=== PATIENT | male | born 1955 | race Caucasian/White ===

== ENCOUNTER 2018-06-20 06:17 | Inpatient (IN) ==
--- NOTE | 2018-06-08 16:09 | PAT Medication Instructions ---
Medication Instructions Date of Service June 08, 2018 Home Medications cholecalciferol (vitamin D3) 5,000 unit PO DAILY clonazepam 0.5 mg PO HS clonazepam 1 mg PO QAM ezetimibe 10 mg PO DAILY ferrous sulfate [iron] 325 mg PO DAILY metformin 500 mg PO QDL oxycodone 10 mg PO TID PRN pantoprazole 40 mg PO QAM pindolol 10 mg PO BID ropinirole [Requip XL] 1.5 tab PO HS vitamin B complex 1 cap PO UD PRN vitamin E 400 unit PO DAILY STOP taking 2 weeks before surgery (or as soon as possible if surgery is within 2 weeks) vitamin E 400 unit PO DAILY STOP taking 24 hours before surgery ropinirole [Requip XL] 1.5 tab PO HS DO NOT take the morning of surgery cholecalciferol (vitamin D3) 5,000 unit PO DAILY ferrous sulfate [iron] 325 mg PO DAILY metformin 500 mg PO QDL vitamin B complex 1 cap PO UD PRN Take morning of surgery With a small sip of water, OTHERWISE NOTHING TO EAT OR DRINK AFTER MIDNIGHT: clonazepam 1 mg PO QAM ezetimibe 10 mg PO DAILY oxycodone 10 mg PO TID PRN (okay to take up to 4 hours prior to surgery if needed) pantoprazole 40 mg PO QAM pindolol 10 mg PO BID Take evening before surgery clonazepam 0.5 mg PO HS oxycodone 10 mg PO TID PRN (if needed) pindolol 10 mg PO BID ropinirole [Requip XL] 1.5 tab PO HS vitamin B complex 1 cap PO UD PRN (if needed) Other Notes If you have any questions please call us at [phone] or [phone] or [phone] or [phone]
--- NOTE | 2018-06-11 12:26 | Anesthesiology Consultation ---
Date of Service June 11, 2018 Assessment & Plan (1) Encounter for pre-operative examination: POSSIBLE DIFFICULT INTUBATION BASED ON PHYSICAL EXAM, NO ISSUES NOTED IN RECORD. Chart Review Chart Review: Acceptable Risk for Surgery and Patient seen in Pre Admission Testing Teaching & Discussion Instructed NPO after midnight before surgery, except medications with 15 cc of water. Medication instructions provided according to the PAT guidelines. History Surgery Operation Date: 06/20/18 13:25 Proposed Procedures p C4-C5, C5-C6 Anterior Cervical Discectomy and Fusion - Cachorro Macdonald DO Height/Weight Height: 5 ft 8 in Weight: 107.5 kg Allergies Allergy/AdvReac Type Severity Reaction Status Date / Time Iodinated Contrast- Oral and Allergy Unknown CONTRAST Verified 06/11/18 10:21 IV Dye DYE -SWELLING THROAT, FACE shellfish derived Allergy Unknown SWELLING Verified 06/11/18 10:21 THROAT FACE amoxicillin AdvReac Unknown UPSET Verified 06/11/18 10:21 STOMACH citalopram AdvReac Unknown MADE HIM Verified 06/11/18 10:21 FEEL SPACED OUT clavulanic acid AdvReac Unknown UPSET Verified 06/11/18 10:21 STOMACH fluoxetine AdvReac Unknown MADE HIM Verified 06/11/18 10:21 FEEL SPACED OUT sertraline AdvReac Unknown MADE HIM Verified 06/11/18 10:21 FEEL SPACED OUT Edkwuwl-Tht-Yte Reductase AdvReac Unknown MUSCLE Verified 06/11/18 10:21 Inhibitor CRAMPS venlafaxine AdvReac Unknown MADE HIM Verified 06/11/18 10:21 FEEL SPACED OUT Medications Home Medications Medication Instructions Recorded Confirmed Last Taken cholecalciferol (vitamin D3) 5,000 unit PO DAILY 04/27/18 06/11/18 Unknown [Vitamin D3] clonazepam 0.5 mg PO HS 04/27/18 06/11/18 04/26/18 clonazepam 1 mg PO QAM 04/27/18 06/11/18 05/16/18 ezetimibe 10 mg PO QAM 04/27/18 06/11/18 05/16/18 ferrous sulfate [iron] 325 mg PO QAM 04/27/18 06/11/18 05/16/18 metformin 1,000 mg PO QDL 04/27/18 06/11/18 05/16/18 oxycodone 10 mg PO TID PRN 03/06/11/18 05/16/18 20:00 pantoprazole 40 mg PO QAM 04/27/18 06/11/18 05/17/18 06:00 pindolol 10 mg PO BID 04/27/18 06/11/18 05/17/18 06:00 ropinirole [Requip XL] 1.5 tab PO HS 04/27/18 06/11/18 05/16/18 vitamin B complex 1 cap PO UD PRN 04/27/18 06/11/18 05/16/18 vitamin E 400 unit PO QAM 04/27/18 06/11/18 05/16/18 albuterol sulfate 2 puff INHALATION Q6H PRN 06/11/18 06/11/18 Unknown Past Medical History Medical History Acid reflux Asthma R/T SEASONAL ALLERGIES. HAS NOT USED INHALER IN THE LAST 2 MONTHS Chronic back pain Degenerative disc disease NECK Diabetes TYPE 2 NIDDM Dilatation of thoracic aorta 4.0 cm per 09/2017 imaging High cholesterol Statin intolerant Nonobstructive atherosclerosis of coronary artery By cath 2000 Osteoarthritis Panic attacks Restless leg syndrome Sleep apnea HX CPAP, NON-COMPLIANT, NO LONGER HAS AT HOME. Vasovagal syncope Cardio following Past Family History Family History Mother Family history of diabetes mellitus Brother Family history of diabetes mellitus Sister Family history of diabetes mellitus Father Family history of diabetes mellitus Grandmother Family history of diabetes mellitus Grandfather Family history of diabetes mellitus Past Surgical History Surgical History History of arthroscopy RIGHT KNEE History of cardiac cath 2000 @ [facility], nonobstructive CAD. History of carpal tunnel release BILATERAL History of colonoscopy History of endoscopy History of herniorrhaphy UMBILICAL History of lumbar discectomy X2 History of myringotomy LEFT MYRINGOTOMY WITH TUBE (MAY 2018) History of neck surgery C6-7 "DISC TAKEN OUT" History of tibial fracture "TIB FIB FX" - LEFT "COMPOUND FRACTURE" - X9 TOTAL SURGERIES (1994) History of tonsillectomy S/P arthroscopy of shoulder RIGHT Past Anesthesia History No Family Hx of Anesthesia Complications and Other --Pt reports having high BP on emergence from anesthesia--anesthesia record from 2013 lumbar surgery with GA notes PACU systolic BP highest 171, diastolic in low 100's at highest. Recent BMT procedure with GA at surgery center; BP 157/91. --Pt reports muscle cramps in B/L calves, "Yonis horses," after BMT surgery 06/01. Reports this has never happened with any other surgeries, and he does get Yonis horses on a regular basis. History of PONV No Motion Sickness Screening History of Motion Sickness: No STOP BANG Total 6 Social History Smoking Status: Never smoker Do You Dip or Chew Tobacco: No Hx Alcohol Use: No Hx Substance Use: No substance use type: does not use Exercise / Class Metabolic Activity II 4-5 Yardwork/Stairs/Walk up hill (Denies CP or SOB with 2+ flights of stairs ) Review of Systems Pt denies any recent chest pain, shortness of breath, palpitations, cough, fever or URI. Physical Exam Vital Signs BP: 122/69 P: 72bpm SPO2: 95% RA T: 98.2 F R: 18 Constitutional + obese ENMT Mouth: + chipped teeth (one chipped upper L molar/bicuspid); no dental restorations and no loose teeth Thyromental Distance: > or= 3.5 Finger Breadths (4) Mallampati Class: III Neck + short neck, + thick neck, + limited neck extension (limited by pain) and + facial hair (short abebe, pt okay to shave prior to surgery (advised avoid surgery site)) Respiratory normal respiratory effort Auscultation: lungs clear to auscultation bilaterally Cardiovascular Rate/Rhythm: regular rate and regular rhythm Heart Sounds: no murmur Vessels: no carotid bruit Extremities: no edema Testing Electrocardiogram Date: 04/26/18 Findings: + NSR @ (65) Chest X-Ray Date: 06/11/18 Findings: + NAD Echocardiogram Date: 09/13/17 EF: 55-60% Left ventricular size, wall motion and systolic function are normal. Mild concentric LVH. Grade 1 diastolic dysfunction. Mildly dilated a sending aorta at 4 cm in diameter. No significant change from 04/18/2016 study. Laboratory Results 06/11/18 12:35 06/11/18 12:35 Blood Type O Positive 06/11/18 12:35 Antibody Screen NEGATIVE 06/11/18 12:35 PT 11.0 Seconds (9.0-12.0) 06/11/18 12:35 INR 1.1 (0.9-1.1) 06/11/18 12:35 APTT 28.7 Seconds (21.0-31.0) 06/11/18 12:35 Urine Color Yellow 06/11/18 Unknown Urine Appearance Clear (Clear) 06/11/18 Unknown Urine pH 5.0 (4.5-7.5) 06/11/18 Unknown Ur Specific [place] 1.021 (1.000-1.030) 06/11/18 Unknown Urine Protein Negative (Negative) 06/11/18 Unknown Urine Glucose (UA) Negative (Negative) 06/11/18 Unknown Urine Ketones Negative (Negative) 06/11/18 Unknown Urine Nitrite Negative (Negative) 06/11/18 Unknown Ur Leukocyte Esterase Negative (Negative) 06/11/18 Unknown
--- NOTE | 2018-06-11 13:07 | XRay Report ---
XR chest Pre-admission PA/Lat CLINICAL HISTORY: pat preoperative COMPARISON STUDY: 12/02/2013 FINDINGS: The bones soft tissues and hemidiaphragms are normal. The cardiomediastinal silhouette is n ormal. The lungs are clear. The pulmonary vasculature is normal. IMPRESSION: Negative chest. The above report was generated using voice recognition software. It may contain grammatical, syntax or spelling errors. Electronically signed by: Delio Leslie M.D. 06/11/2018 1:06 PM
[2018-06-11 13:28] LABS: Basophils # (auto) 0.04 K/uL (0-0.2); Basophils % (auto) 0.6 %; Eosinophils # (auto) 0.12 K/uL (0-0.5); Eosinophils % (auto) 1.8 %; Hemoglobin 14.6 g/dL (14.0-18.0); Immature Granulocytes # (auto) 0.02 K/uL (0.00-0.02); Immature Granulocytes % (auto) 0.3 %; Lymphocytes # (auto) 1.56 K/uL (1.2-3.4); Mean Corpuscular Volume 89.8 fL (80-100); Mean Platelet Volume 10.4 fL (7.4-10.4); Monocytes # (auto) 0.66 K/uL (0.11-0.59); Monocytes % (auto) 10.1 %; Neutrophils # (auto) 4.11 K/uL (1.4-6.5); Neutrophils % (auto) 63.2 %; Platelet Count 177 K/uL (130-400); RDW Coefficient of Variation 13.2 % (11.5-14.5); RDW Standard Deviation 43.5 fL (36.4-46.3); Red Blood Count 4.79 M/uL (4.7-6.1); White Blood Count 6.51 K/uL (4.8-10.8)
[2018-06-11 13:43] LABS: INR 1.1 (0.9-1.1); Partial Thromboplastin Ratio 1.1; Partial Thromboplastin Time 28.7 Seconds (21.0-31.0)
[2018-06-11 13:54] LABS: BUN Creatinine Ratio 14.5 (10-20); Calcium 8.9 mg/dl (8.5-10.1); Creatinine Clr Calc Pharmacy 74.4 ml/min; Est GFR (African American) 72.3; Est GFR (Non-African American) 62.4; Potassium 4.1 mmol/L (3.5-5.1)
[2018-06-11 13:55] LABS: Appearance Urine Clear (Clear); Bilirubin Urine Negative (Negative); Blood Urine Negative (Negative); Color Urine Yellow; Glucose Urine UA Negative (Negative); Ketones Urine Negative (Negative); Leukocyte Esterase Urine Negative (Negative); Nitrite Urine Negative (Negative); Protein Urine Negative (Negative); Specific Gravity Urine 1.021 (1.000-1.030); Urobilinogen Urine Negative (Negative)
[~2018-06-20 06:17] MED LIST: ACETAMINOPHEN 500 MG TAB PO SCH; CEFAZOLIN 2000MG 2,000 MG/15 ML SYR IV SCH; CeleBREX 200 MG CAP PO SCH; GABAPENTIN 300 MG x 2 PO SCH; LACTATED RINGER'S 1,000 ML IV SCH
--- OUTSIDE RECORDS SUMMARY | 2018-06-20 06:22 | External Medical Summary | Continuity of Care Document ---
:1955 Author Name Melissa Mera, Provider Address Unavailable Unavailable , Care Team Providers Name Role Phone Leidy Grewal DO Unavailable [email or web address] Mera, Gianni Romano Unavailable [email or web address] Hypercholesterolemia (272.0) (E78.00) Hypertension (401.9) (I10) Vasovagal near syncope (780.2) (R55) CAD (coronary artery disease) (414.00) (I25.10) Dilation of thoracic aorta (447.71) (I77.810) Iron deficiency anemia (280.9) (D50.9) Insomnia (780.52) (G47.00) Pain, joint, shoulder (719.41) (M25.519) Pain, joint, knee (719.46) (M25.569) Prediabetes (790.29) (R73.03) Elevated sed rate (790.1) (R70.0) Abnormal SPEP (790.99) (R77.8) Cervical radiculopathy (723.4) (M54.12) Restless legs syndrome (333.94) (G25.81) Sebaceous cyst (706.2) (L72.3) Umbilical hernia (553.1) (K42.9) Low back pain (724.2) (M54.5) Vitamin D deficiency (268.9) (E55.9) Asthma (493.90) (J45.909) Allergies and Adverse Reactions Atorvastatin Calcium TABS (Adverse Event) Reaction: Myalgia Augmentin TABS (Adverse Event) Reaction: Other CeleXA TABS (Adverse Event) Reaction: Ot her Effexor TABS (Adverse Event) Reaction: O ther Iodinated Contrast Media (Allergy) Iodine SOLN (Allergy) metFORMIN HCl TABS (Adverse Event) React ion: Diarrhea PROzac TABS (Adverse Event) Reaction: Ot her simvastatin (Adverse Event) Reaction: My algia Zoloft TABS (Adverse Event) Reaction: Ot her Intravenous Dye (Allergy) Other (Allergy) Pollen (Allergy) Shellfish (Allergy) Medications Protonix 40 MG Oral Tablet Delayed Release; TAKE 1 TABLET NAHOMY KELLER. Refills: 0 clonazePAM 1 MG Oral Tablet; Take 1 tablet twice daily Refills: 0 rOPINIRole HCl - 2 MG Oral Tablet; TAKE 1 TABLET AT BE DTIME. DO Uri Leidy Refills: 0 Pindolol 10 MG Oral Tablet; Take 1 tablet twice daily Refills: 0 Symbicort 160-4.5 MCG/ACT Inhalation Aer osol; INHALE 2 PUFFS TWICE DAILY. RINSE MOUTH AFTER USE. Refills: 0 Flonase 50 MCG/ACT SUSP; instill 2 sprays into each nostril once daily Refills: 0 Vitamin D 2000 UNIT Oral Tablet; Take 1 tablet daily Start: 01-Sep-2015 Refills: 0 oxyCODONE HCl - 10 MG Oral Tablet; TAKE 1 TABLETS BY MOUTH E VERY 8 HOURS Start: 01-Sep-2015 Refills: 0 metFORMIN HCl - 500 MG Oral Tablet; take 1 tablet by mouth o nce daily Refills: 0 Proventil HFA 108 (90 Base) MCG/ACT Inha lation Aerosol Solution; INHALE 2 PUFFS EVERY 4 HOURS NEEDED Refills: 0 Ezetimibe 10 MG Oral Tablet; TAKE 1 TABLET BY MOUTH Ede Watkins Start: 13-Sep-2017 Quantity: 90 Refills: 5 CeleBREX 200 MG Oral Capsule; TAKE 1 CAPSULE Daily Quantity: 90 Refills: 3 Procedures History of Back Surgery Status: Complete d History of Sinus Surgery Status: Complet ed History of Knee Surgery Status: Complete d History of Neuroplasty Median Nerve At Carpal Status: Completed Tunnel History of Incarcerated Umbilical Hernia Repair Status: Completed 01-Oct-2015 0:00 For Person Over Age 5 Immunizations Immunizations not documented Family History Mother Family history of No known health problems (V49.89) (Z78.9) Status: Active Father Family history of No known health problems (V49.89) (Z78.9) Status: Active Social History - Smoking Status Never smoker Plan of Treatment Planned Encounters Appointment; Gianni Velásquez M.D. Start: 24-Sep-2018 15:45 R equest Planned Observations Planned Goals not documented Results No Known Results Results not documented Encounters Appointment; Gianni Velásquez M.D. 26-Mar-2018 15:30 Encounter Diagnosis: Problem not documented Appointment; Gianni Velásquez M.D. 13-Sep-2017 15:45 Encounter Diagnosis: Problem not documented Appointment; Echo/Stress, Echo/Stress 13-Sep-2017 14:30 Encounter Diagnosis: Problem not documented Appointment; Gianni Velásquez M.D. 29-Mar-2017 14:00 Encounter Diagnosis: Problem not documented Appointment; Gianni Velásquez M.D. 26-Sep-2016 13:15 Encounter Diagnosis: Problem not documented Appointment; Gianni Velásquez M.D. 24-Sep-2018 15:45 Encounter Diagnosis: Problem not documented
[2018-06-20] MEDS ORDERED: LIDOCAINE HCL 2% 2 ML VIAL/AMP(20MG/ML) INFIL ONE (06:48)
[2018-06-20] MEDS ORDERED: NEOSTIGMINE METHYLSULFATE 1 MG/ML 10ML VIAL ONE (06:48)
[2018-06-20] MEDS ORDERED: fentaNYL citrate 100 MCG/2 ML VIAL ONE (06:48)
[2018-06-20] MEDS ORDERED: MIDAZOLAM HCL 1 MG/ML 2ML VIAL ONE (06:48)
[2018-06-20] MEDS ORDERED: PROPOFOL IV EMULSION 10 MG/ML 20 ML VIAL IV ONE ×3 (06:48→09:03)
[2018-06-20] MEDS ORDERED: DEXAMETHASONE SOD INJ 4 MG/ML VIAL ONE (06:48)
[2018-06-20] MEDS ORDERED: GLYCOPYRROLATE 0.2 MG/ML VIAL ONE (06:48)
[2018-06-20] MEDS ORDERED: ROCURONIUM BROMIDE 10 MG/ML 5 ML VIAL ONE (06:48)
[2018-06-20] MEDS ORDERED: BACITRACIN INJ 50,000 UNIT VIAL ONE (06:53)
[2018-06-20] MEDS ORDERED: HYDROmorphone INJ 2 MG/ML SYR/VIAL ONE (07:04)
--- NOTE | 2018-06-20 07:19 | History & Physical Bridge Note ---
Date of Service June 20, 2018 History & Physical Bridge Note I have examined the patient, reviewed the History & Physical and in the interval since the performance of the History & Physical I have noted the following changes of clinical significance: no changes noted
--- NOTE | 2018-06-20 07:20 | History & Physical Report ---
Date of Service June 20, 2018 Assessment & Plan (1) Cervical stenosis of spinal canal: Anterior cervical discectomy and fusion C4-5 and C5-6 Present on Admission?: Yes History of Present Illness Chief Complaint: Neck and arm pain Primary Care Provider: Yuniel Raymond This is a 63-year-old male who presents with chronic persistent neck and arm pain. After failing extensive course of nonoperative care is here for surgical intervention. Allergies Allergy/AdvReac Type Severity Reaction Status Date / Time Iodinated Contrast- Oral and Allergy Unknown CONTRAST Verified 06/20/18 06:28 IV Dye DYE -SWELLING THROAT, FACE shellfish derived Allergy Unknown SWELLING Verified 06/20/18 06:28 THROAT FACE amoxicillin AdvReac Unknown UPSET Verified 06/20/18 06:28 STOMACH citalopram AdvReac Unknown MADE HIM Verified 06/20/18 06:28 FEEL SPACED OUT clavulanic acid AdvReac Unknown UPSET Verified 06/20/18 06:28 STOMACH fluoxetine AdvReac Unknown MADE HIM Verified 06/20/18 06:28 FEEL SPACED OUT sertraline AdvReac Unknown MADE HIM Verified 06/20/18 06:28 FEEL SPACED OUT Ihxxiwp-Fgr-Nus Reductase AdvReac Unknown MUSCLE Verified 06/20/18 06:28 Inhibitor CRAMPS venlafaxine AdvReac Unknown MADE HIM Verified 06/20/18 06:28 FEEL SPACED OUT Home Medications Home Medications Medication Instructions Recorded Confirmed Type cholecalciferol (vitamin D3) 5,000 unit PO DAILY 04/27/18 06/20/18 History [Vitamin D3] clonazepam 0.5 mg PO HS 04/27/18 06/20/18 History clonazepam 1 mg PO QAM 04/27/18 06/20/18 History ezetimibe 10 mg PO QAM 04/27/18 06/20/18 History ferrous sulfate [iron] 325 mg PO QAM 04/27/18 06/20/18 History metformin 1,000 mg PO QDL 04/27/18 06/20/18 History oxycodone 10 mg PO TID PRN 04/27/18 06/20/18 History pantoprazole 40 mg PO QAM 04/27/18 06/20/18 History pindolol 10 mg PO BID 04/27/18 06/20/18 History ropinirole [Requip XL] 1.5 tab PO HS 04/27/18 06/20/18 History vitamin B complex 1 cap PO UD PRN 04/27/18 06/20/18 History vitamin E 400 unit PO QAM 04/27/18 06/20/18 History albuterol sulfate 2 puff INHALATION Q6H PRN 06/11/18 06/20/18 History Past Med/Surg History Medical History Acid reflux Asthma R/T SEASONAL ALLERGIES. HAS NOT USED INHALER IN THE LAST 2 MONTHS Chronic back pain Degenerative disc disease NECK Diabetes TYPE 2 NIDDM Dilatation of thoracic aorta 4.0 cm per 09/2017 imaging High cholesterol Statin intolerant Nonobstructive atherosclerosis of coronary artery By cath 2000 Osteoarthritis Panic attacks Restless leg syndrome Sleep apnea HX CPAP, NON-COMPLIANT, NO LONGER HAS AT HOME. Vasovagal syncope Cardio following Surgical History History of arthroscopy RIGHT KNEE History of cardiac cath 2000 @ [facility], nonobstructive CAD. History of carpal tunnel release BILATERAL History of colonoscopy History of endoscopy History of herniorrhaphy UMBILICAL History of lumbar discectomy X2 History of myringotomy LEFT MYRINGOTOMY WITH TUBE (MAY 2018) History of neck surgery C6-7 "DISC TAKEN OUT" History of tibial fracture "TIB FIB FX" - LEFT "COMPOUND FRACTURE" - X9 TOTAL SURGERIES (1994) History of tonsillectomy S/P arthroscopy of shoulder RIGHT Family History Mother Family history of diabetes mellitus Brother Family history of diabetes mellitus Sister Family history of diabetes mellitus Father Family history of diabetes mellitus Grandmother Family history of diabetes mellitus Grandfather Family history of diabetes mellitus Social History Preferred Language: Marshallese Communication Ability: Effective Head Turbine Operator Required: No Beliefs That Will Affect Care: None Current Living Situation: Spouse and Other Current Living Situation Comment: SON Other Information That Helps Us Care for You: No Feels Safe at Home: Yes Safety Concerns: Feels Safe At This Time Smoking Status: Never smoker Do You Dip or Chew Tobacco: No Second Hand Exposure: No Tobacco Cessation Education Requested by Patient: No Hx Alcohol Use: No Hx Substance Use: No Physical Exam Vital Signs (Past 24 Hours): Last Vital Signs Temp 36.7 C 06/20/18 06:38 Pulse 70 06/20/18 06:38 Resp 20 06/20/18 06:38 BP 153/88 H 06/20/18 06:38 Pulse Ox 95 06/20/18 06:38 Physical Exam: Patient is reasonable strength testing a positive Spurling's to the right.
[2018-06-20] MEDS ORDERED: ATROPINE SULFATE 0.1 MG/ML 10ML SYR IV PRN (07:29)
[2018-06-20] MEDS ORDERED: ePHEDrine sulfate 50 MG/ML AMP IV PRN (07:29)
[2018-06-20] MEDS ORDERED: FLOSEAL HEMOSTATIC MATRIX 10ML TOP ONE (08:20)
--- NOTE | 2018-06-20 09:30 | Operative Report ---
Post Operative Report Pre & Post Diagnosis Operation Date: 06/20/18 07:45 Pre-Op Diagnosis: Cervical spinal stenosis with radiculopathy Post-Op Diagnosis: Same Procedure Operation Date: 06/20/18 07:45 Actual Procedures #1 anterior cervical discectomy bilateral foraminotomies C4-5 C5-6. #2 anterior cervical arthrodesis C4-5 C5-6. #3 basement cortical allograft filled with DBM 9 mm in height at C4-5 and 7 mm in height at C5-6. #4 application mondragon plate and screws at C4-5 C5-6. Surgeon Cachorro Macdonald, Purchasing Buyer Melodie Rivera Estimated Blood Loss 5 Findings See Below This patient is 5 foot 8 and 105 kg. He is a BMI of 35. Patient's body mass created increased technical difficulty with exposure and performing the entire procedure adding a minimum of of 25% increase in surgical time. Specimens None Indications This is a 63-year-old male presents with worsening of neck and arm symptoms. After failing extensive course of nonoperative care elected to undergo the above-mentioned procedure. Description of Procedure Patient was met with identified and informed consent obtained. He was then taken to the operative suite underwent intubation placed in a supine position injected with a Horn hogshead opener. All bony prominences well-padded eyes inspected to ensure no external pressure placed upon the peer at this point the anterior cervical spine was prepped and draped in a sterile fashion. With the assistance of fluoroscopy identified the C5 vertebral body and a transverse incision was placed along the right anterior aspect of the cervical spine overlying this region. Sharp dissection with the assistance of bipolar cautery was performed down to and exposing the anterior cervical spine from C4-C6. A self retainer retractors placed. I began with the C4-5 disc space perform a complete discectomy out to the uncovertebral joint bilaterally. Atlantic dis tracting pins utilized to assist in visualization. I removed all posterior annular fibers longitudinal ligament perform bilateral foraminotomies. Endplates were then burred to subcortical bleeding bone and a 9 mm cortical allograft filled with DBM tapped in position. Then proceeded to see 5 6. Again complete discectomy performed out to the uncovertebral joints bilaterally. Atlantic distracting pins again utilized. Removed all posterior annular fibers longitudinal ligament and perform bilateral foraminotomies. A 7 mm cortical allograft filled with DBM tapped in position. Distraction apparatus removed all anterior ossified's burred to a smooth cortical surface and a globus plate and screws applied with the assistance of fluoroscopy. Incision was then copiously irrigated explored there to ensure no damage to surrounding structures remaining bleeding. 10 round SAROJ drain inserted. Incision was then closed with 2 Vicryl in the fascia and 4 Monocryl for final closure Steri-Strip sterile dressing placed. Patient will continue PACU stable disc. Please note Melodie Rivera present at the entire procedure involved in patient positioning complex portions of the surgery and final skin closure. Lastly spinal cord monitoring was utilized throughout the procedure and no changes noted. I attest to the content of the Intraoperative Record and any orders documented therein. Any exceptions are noted below.
[2018-06-20] MEDS: HYDROmorphone INJ 1 MG/ML SYRINGE IV PRN ×8 (09:50→10:25)
--- NOTE | 2018-06-20 10:02 | Fluoroscopy Report ---
FL cervical 2-3V CLINICAL HISTORY: C4-C5, C5-C6 ANTERIOR DISCECTOMY/FUSION COMPARISON STUDY: None FLUOROSCOPY TIME: 15 seconds NUMBER OF FLUOROSCOPIC IMAGES: 3 FINDINGS: Image intensifier utilized for an anterior low cervical fusion from C4 through C6. IMPRESSION: Image intensifier utilized for an anterior low cervical fusion from C4 through C6. The above report was generated using voice recognition software. It may contain grammatical, syntax or spelling errors. Electronically signed by: Delio Leslie M.D. 06/20/2018 10:01 AM
--- NOTE | 2018-06-20 10:38 | Anesthesiology Progress Note ---
Date of Service June 20, 2018 Anesthesia Post Procedure Vital Signs Vital Signs: Temp Pulse Pulse Resp BP Pulse Ox 06/20/18 10:30 63 16 160/78 H 99 06/20/18 10:20 65 15 164/81 H 94 06/20/18 10:10 61 16 155/94 H 98 06/20/18 10:00 64 16 170/105 H 97 06/20/18 09:50 64 16 151/81 H 98 06/20/18 09:42 36.2 C L 64 16 167/98 H 97 06/20/18 06:38 36.7 C 70 20 153/88 H 95 Pain Intensity Neck: Pain Intensity: 6 Notes Mental Status: alert / awake / arousable and participated in evaluation Nausea / Vomiting: adequately controlled Pain: adequately controlled Airway Patency, RR, SpO2: stable & adequate BP & HR: stable & adequate Hydration State: stable & adequate
[2018-06-20] MEDS ORDERED: MAGNESIUM HYDROXIDE SUSP 30 ML UDC PO PRN (11:15)
[2018-06-20] MEDS ORDERED: LORazepam 0.5 MG/1 ML VIAL IV PRN (11:15)
[2018-06-20] MEDS ORDERED: ACETAMINOPHEN 1,000 MG/100 ML VIAL IV PRN (11:15)
[2018-06-20] MEDS ORDERED: OXYCODONE HCL IR 5 MG TAB (IMMEDIATE RELEASE) PO PRN (11:15)
[2018-06-20] MEDS ORDERED: ONDANSETRON INJ 2 MG/ML 2 ML VIAL IV PRN (11:15)
[2018-06-20] MEDS ORDERED: RACEPINEPHRINE 2.25% NEBU SOLN 0.5 ML VIAL INH PRN (11:15)
[2018-06-20] MEDS ORDERED: DiphenhydrAMINE HCL 50 MG/ML VIAL IV PRN (11:15)
[2018-06-20] MEDS ORDERED: DO NOT ADMINISTER FLU VACCINE PRN (11:15)
[2018-06-20] MEDS ORDERED: LORazepam 0.5 MG TAB PO PRN (11:15)
[2018-06-20] MEDS ORDERED: NALOXONE HCL 0.4 MG/1 ML VIAL/CARP IV PRN (11:15)
[2018-06-20] MEDS ORDERED: DO NOT ADMINISTER PNEUMOCOCCAL VACCINE PRN (11:15)
[2018-06-20] MEDS ORDERED: DEXAMETHASONE SOD PHOSPHATE 8 MG in SYRINGE 0 ML IV PRN (11:15)
[2018-06-20] MEDS ORDERED: SCOPOLAMINE 1.5 MG TDSY TD SCH (11:30)
[2018-06-20] MEDS: HYDROmorphone INJ 0.5 MG/0.5 ML SYR IV PRN ×2 (12:44→20:06)
[2018-06-20] MEDS: CLINDAMYCIN 600 MG in DEXTROSE 5% 50 ML IV SCH ×2 (14:24→22:16)
[2018-06-20] MEDS: SODIUM CHLORIDE 0.9% 1000ML 1,000 ML IV SCH ×2 (14:28→23:37)
--- NOTE | 2018-06-20 15:23 | Hospitalist Consultation ---
Date of Consultation June 20, 2018 Assessment & Plan (1) Cervical stenosis of spinal canal: POD #[address] Macdonald Follow standard protocol for ACDF postoperative management Further management per Dr. Mcadonald (2) Hypertension: No history of hypertension as an outpatient Patient is on pindolol for vasovagal syndrome * This is nonformulary. His will bring medication in and have verified by pharmacy and then take per home At this point the patient's systolic blood pressure is manageable at 134. Will watch expectantly No additional orders for PRN medication at this time Nursing to call hospitalist team in the event that patient experience hypertension over the nighttime hours. (3) Diabetes mellitus type 2 in obese: Recently diagnosed Metformin use at home - Continue during inpatient stay Hemoglobin A1c as 7.5 BSG ACHS NovoLog sliding scale coverage (4) GERD (gastroesophageal reflux disease): Currently asymptomatic Keep head of bed elevated above 30 degrees Continue pantoprazole (5) DVT prophylaxis: No chemical prophylaxis secondary to surgery Continue JOHN hose Continue SCDs Ambulate as tolerated Thank you very much for including us in the care of this patient. Please refer to Dr. Burkett's addendum for further recommendations. Supervising Physician Co-Signing Physician Notes During my face to face encounter, I performed a history and physical examination on the patient. I reviewed above note and agree with it. I answered all of the patients questions and concerns. In regards to his diabetes, will hold metformin and continue the sliding scale as described above. History of Present Illness Reason for Consultation: Medical management status post ACDF Requesting Physician: Dr. Macdonald Attending Physician: Cachorro Macdonald, History of Present Illness Attending: Dr. Burkett Is a pleasant 63-year-old male that presented today for elective ACDF with Dr. Macdonald. The patient has a past medical history which includes GERD, vasovagal disease on pindolol, iron deficiency, recently diagnosed diabetes mellitus type 2 on metformin, restless leg syndrome, hyperlipidemia, chronic otitis media of left ear secondary to eustachian tube dysfunction, and anxiety. The patient has no recent illness, fever, chills, sweats, rigors. He denies any nausea or vomiting. He has no recent diarrhea. He has no recent travel. He has no other acute issues. The patient does report that on previous history of surgery he required IV antihypertensives for transient hypertension and typically has calf cramping postsurgically. He denies history of thromboembolic disease. He is not on any anticoagulants or routine antiplatelet medications. Allergies Allergy/AdvReac Type Severity Reaction Status Date / Time Iodinated Contrast- Oral and Allergy Unknown CONTRAST Verified 06/20/18 06:28 IV Dye DYE -SWELLING THROAT, FACE shellfish derived Allergy Unknown SWELLING Verified 06/20/18 06:28 THROAT FACE amoxicillin AdvReac Unknown UPSET Verified 06/20/18 06:28 STOMACH citalopram AdvReac Unknown MADE HIM Verified 06/20/18 06:28 FEEL SPACED OUT clavulanic acid AdvReac Unknown UPSET Verified 06/20/18 06:28 STOMACH fluoxetine AdvReac Unknown MADE HIM Verified 06/20/18 06:28 FEEL SPACED OUT sertraline AdvReac Unknown MADE HIM Verified 06/20/18 06:28 FEEL SPACED OUT [id number] Reductase AdvReac Unknown MUSCLE Verified 06/20/18 06:28 Inhibitor CRAMPS venlafaxine AdvReac Unknown MADE HIM Verified 06/20/18 06:28 FEEL SPACED OUT Home Medications Home Medications Medication Instructions Recorded Confirmed Type cholecalciferol (vitamin D3) 5,000 unit PO DAILY 04/27/18 06/20/18 History [Vitamin D3] clonazepam 0.5 mg PO HS 04/27/18 06/20/18 History clonazepam 1 mg PO QAM 04/27/18 06/20/18 History ezetimibe 10 mg PO QAM 04/27/18 06/20/18 History ferrous sulfate [iron] 325 mg PO QAM 04/27/18 06/20/18 History metformin 1,000 mg PO QDL 04/27/18 06/20/18 History oxycodone 10 mg PO TID PRN 04/27/18 06/20/18 History pantoprazole 40 mg PO QAM 04/27/18 06/20/18 History pindolol 10 mg PO BID 04/27/18 06/20/18 History ropinirole [Requip XL] 1.5 tab PO HS 04/27/18 06/20/18 History vitamin B complex 1 cap PO UD PRN 04/27/18 06/20/18 History vitamin E 400 unit PO QAM 04/27/18 06/20/18 History albuterol sulfate 2 puff INHALATION Q6H PRN 06/11/18 06/20/18 History oxycodone 5 mg PO Q4H PRN #30 tab 06/20/18 Rx Patient History Medical History Asthma R/T SEASONAL ALLERGIES. HAS NOT USED INHALER IN THE LAST 2 MONTHS Chronic back pain Osteoarthritis Acid reflux Degenerative disc disease NECK Diabetes TYPE 2 NIDDM Dilatation of thoracic aorta 4.0 cm per 09/2017 imaging High cholesterol Statin intolerant Nonobstructive atherosclerosis of coronary artery By cath 2000 Panic attacks Restless leg syndrome Sleep apnea HX CPAP, NON-COMPLIANT, NO LONGER HAS AT HOME. Vasovagal syncope Cardio following Surgical History History of arthroscopy RIGHT KNEE History of carpal tunnel release BILATERAL History of herniorrhaphy UMBILICAL History of myringotomy LEFT MYRINGOTOMY WITH TUBE (MAY 2018) History of tonsillectomy S/P arthroscopy of shoulder RIGHT History of cardiac cath 2000 @ [facility], nonobstructive CAD. History of colonoscopy History of endoscopy History of lumbar discectomy X2 History of neck surgery C6-7 "DISC TAKEN OUT" History of tibial fracture "TIB FIB FX" - LEFT "COMPOUND FRACTURE" - X9 TOTAL SURGERIES (1994) Family History Mother Family history of diabetes mellitus Brother Family history of diabetes mellitus Sister Family history of diabetes mellitus Father Family history of diabetes mellitus Grandmother Family history of diabetes mellitus Grandfather Family history of diabetes mellitus Social History Preferred Language: Dominican Communication Ability: Effective Cargo Trimmer Required: No Beliefs That Will Affect Care: None marital status: Current Living Situation: Spouse and Other Current Living Situation Comment: SON Other Information That Helps Us Care for You: No Feels Safe at Home: Yes Safety Concerns: Feels Safe At This Time Smoking Status: Never smoker Do You Dip or Chew Tobacco: No Second Hand Exposure: No Tobacco Cessation Education Requested by Patient: No Hx Alcohol Use: No Hx Substance Use: No Review of Systems Review of Systems: All systems reviewed & are unremarkable except as noted in HPI & below Physical Exam Physical Exam: GENERAL : No acute distress EYES: No icterus, gaze conjugate NOSE: No evidence of epistaxis MOUTH: No lesions or candidiasis NECK: Supple. Dressing is intact with minimal evidence of bleeding. SAROJ drain is draining well. No evidence of hematoma. Trachea is midline. There is no evidence of stridor. No apparent issues with swallowing. LUNGS: CTA B/L, no wheezes, rales or rhonchi HEART: Regular, rate controlled ABDOMEN: Soft, NT, ND, BS Present EXTREMITIES: No LE edema, pedal pulses intact. JOHN hose and SCDs intact NEURO: A&OX3 Results & Data Vital Signs (Past 12 Hours) Vital Signs Temp Pulse Pulse Pulse Resp BP BP 06/20/18 14:41 36.8 C 76 18 134/84 06/20/18 13:00 36.4 C L 59 L 17 167/90 H 06/20/18 12:45 36.5 C 61 18 170/103 H 06/20/18 12:40 69 175/97 H 06/20/18 12:30 36.3 C L 66 16 189/110 H 06/20/18 11:45 52 L 16 133/77 06/20/18 11:31 60 16 06/20/18 11:30 36.4 C L 56 L 16 165/105 H 06/20/18 11:16 58 L 164/101 H 06/20/18 11:10 55 L 167/105 H 06/20/18 11:00 36.6 C 60 17 168/111 H 06/20/18 10:50 36.4 C L 57 L 16 136/72 06/20/18 10:40 36.4 C L 57 L 16 153/92 H 06/20/18 10:30 63 16 160/78 H 06/20/18 10:20 65 15 164/81 H 06/20/18 10:10 61 16 155/94 H 06/20/18 10:00 64 16 170/105 H 06/20/18 09:50 64 16 151/81 H 06/20/18 09:42 36.2 C L 64 16 167/98 H 06/20/18 06:38 36.7 C 70 20 153/88 H Pulse Ox 06/20/18 14:41 96 06/20/18 13:00 97 06/20/18 12:45 96 06/20/18 12:40 97 06/20/18 12:30 98 06/20/18 11:45 98 06/20/18 11:31 99 06/20/18 11:30 97 06/20/18 11:16 06/20/18 11:10 06/20/18 11:00 96 06/20/18 10:50 96 06/20/18 10:40 96 06/20/18 10:30 99 06/20/18 10:20 94 06/20/18 10:10 98 06/20/18 10:00 97 06/20/18 09:50 98 06/20/18 09:42 97 06/20/18 06:38 95 Laboratory Results 06/11/18 12:35 06/11/18 12:35 Diagnostic Findings FL cervical 2-3V CLINICAL HISTORY: C4-C5, C5-C6 ANTERIOR DISCECTOMY/FUSION COMPARISON STUDY: None FLUOROSCOPY TIME: 15 seconds NUMBER OF FLUOROSCOPIC IMAGES: 3 FINDINGS: Image intensifier utilized for an anterior low cervical fusion from C4 through C6. IMPRESSION: Image intensifier utilized for an anterior low cervical fusion from C4 through C6.
[2018-06-20] MEDS: OXYCODONE HCL IR 5 MG TAB (IMMEDIATE RELEASE) PO PRN ×2 (15:26→23:36)
[2018-06-20] MEDS: CHECK SCOPOLAMINE PATCH PLACEMENT SCH ×2 (16:09→23:38)
[2018-06-20] MEDS ORDERED: GLUCAGON FOR INJ 1 MG VIAL IM PRN (16:30)
[2018-06-20] MEDS ORDERED: CARBOHYDRATES FOR HYPOGLYCEMIA PO PRN (16:30)
[2018-06-20] MEDS ORDERED: DEXTROSE 50% 50 ML SYRINGE IV PRN (16:30)
[2018-06-20] MEDS ORDERED: GLUCOSE 10 TABS/TUBE PO PRN (16:30)
[2018-06-20] MEDS ORDERED: GLUCOSE 40% GEL 15 GM TUBE PO PRN (16:30)
[2018-06-20] MEDS: INSULIN ASPART 100 UNITS/ML 3 ML PEN SC SCH ×2 (18:46→22:07)
[2018-06-20] MEDS: DOCUSATE SODIUM 100 MG CAP PO SCH (20:15)
[2018-06-20] MEDS: [UNRECOGNIZED DRUG - REMARK] PO SCH (20:15)
[2018-06-20] MEDS ORDERED: HydrALAZINE HCL 20 MG/ML VIAL IV ONE (20:33)
[2018-06-20] MEDS ORDERED: PINDOLOL 10 MG PO SCH (21:00)
[2018-06-20] MEDS ORDERED: clonazePAM 0.5 MG TAB PO SCH (21:00)
[2018-06-21] MEDS: OXYCODONE HCL IR 5 MG TAB (IMMEDIATE RELEASE) PO PRN ×3 (03:45→11:53)
[2018-06-21] MEDS: CLINDAMYCIN 600 MG in DEXTROSE 5% 50 ML IV SCH (06:07)
--- NOTE | 2018-06-21 08:00 | Anesthesiology Progress Note ---
Date of Service June 21, 2018 Anesthesia Post Procedure Vital Signs Vital Signs: Temp Pulse Pulse Resp BP BP Pulse Ox 06/21/18 07:36 36.9 C 76 18 174/94 H 93 06/21/18 07:04 82 16 92 06/21/18 06:17 36.8 C 74 16 161/93 H 93 06/21/18 04:00 36.6 C 78 16 151/89 H 93 06/21/18 03:37 86 16 92 06/21/18 02:00 36.8 C 77 16 151/82 H 92 06/21/18 00:00 36.6 C 89 16 164/90 H 93 06/20/18 23:21 36.6 C 74 18 150/84 H 93 06/20/18 23:12 80 18 92 06/20/18 22:20 36.9 C 90 16 161/90 H 93 06/20/18 21:27 156/88 H 06/20/18 20:17 36.6 C 93 H 18 211/127 H 180/101 H 95 06/20/18 20:00 99 H 16 94 06/20/18 18:22 37 C 82 18 168/91 H 191/111 H 95 06/20/18 16:12 36.8 C 74 16 159/95 H 95 06/20/18 15:54 36.5 C 62 17 160/89 H 95 06/20/18 15:31 66 14 97 06/20/18 14:41 36.8 C 76 18 134/84 96 06/20/18 13:00 36.4 C L 59 L 17 167/90 H 97 06/20/18 12:45 36.5 C 61 18 170/103 H 96 06/20/18 12:40 69 175/97 H 97 06/20/18 12:30 36.3 C L 66 16 189/110 H 98 06/20/18 11:45 52 L 16 133/77 98 06/20/18 11:31 60 16 99 06/20/18 11:30 36.4 C L 56 L 16 165/105 H 97 06/20/18 11:16 58 L 164/101 H 06/20/18 11:10 55 L 167/105 H 06/20/18 11:00 36.6 C 60 17 168/111 H 96 06/20/18 10:50 36.4 C L 57 L 16 136/72 96 06/20/18 10:40 36.4 C L 57 L 16 153/92 H 96 06/20/18 10:30 63 16 160/78 H 99 06/20/18 10:20 65 15 164/81 H 94 06/20/18 10:10 61 16 155/94 H 98 06/20/18 10:00 64 16 170/105 H 97 06/20/18 09:50 64 16 151/81 H 98 06/20/18 09:42 36.2 C L 64 16 167/98 H 97 Pain Intensity Neck: Pain Intensity: 6 Notes Mental Status: alert / awake / arousable and participated in evaluation Patient Amnestic to Procedure: Yes Nausea / Vomiting: adequately controlled Pain: adequately controlled Airway Patency, RR, SpO2: stable & adequate BP & HR: stable & adequate Hydration State: stable & adequate Anesthetic Complications: no major complications apparent and Pt Satisfied with anesthetic care
[2018-06-21] MEDS: [UNRECOGNIZED DRUG - REMARK] PO SCH (08:08)
[2018-06-21] MEDS: DOCUSATE SODIUM 100 MG CAP PO SCH (08:09)
[2018-06-21] MEDS: CHECK SCOPOLAMINE PATCH PLACEMENT SCH (08:09)
--- NOTE | 2018-06-21 08:26 | Discharge Summary ---
Date of Service June 21, 2018 Admission HPI Per Admitting Provider This is a 63-year-old male who presents with chronic persistent neck and arm pain. After failing extensive course of nonoperative care is here for surgical intervention. Principal Diagnosis Cervical spinal stenosis with radiculopathy Discharge Data Allergies Allergy/AdvReac Type Severity Reaction Status Date / Time Iodinated Contrast- Oral and Allergy Unknown CONTRAST Verified 06/20/18 06:28 IV Dye DYE -SWELLING THROAT, FACE shellfish derived Allergy Unknown SWELLING Verified 06/20/18 06:28 THROAT FACE amoxicillin AdvReac Unknown UPSET Verified 06/20/18 06:28 STOMACH citalopram AdvReac Unknown MADE HIM Verified 06/20/18 06:28 FEEL SPACED OUT clavulanic acid AdvReac Unknown UPSET Verified 06/20/18 06:28 STOMACH fluoxetine AdvReac Unknown MADE HIM Verified 06/20/18 06:28 FEEL SPACED OUT sertraline AdvReac Unknown MADE HIM Verified 06/20/18 06:28 FEEL SPACED OUT [id number] Reductase AdvReac Unknown MUSCLE Verified 06/20/18 06:28 Inhibitor CRAMPS venlafaxine AdvReac Unknown MADE HIM Verified 06/20/18 06:28 FEEL SPACED OUT Consultations 06/20/18 12:56 Consult Hospitalist Routine Procedures Performed Operation Date: 06/20/18 07:45 Actual Procedures p C4-C5, C5-C6 Anterior Cervical Discectomy and Fusion, Spinal Cord Monitoring(Not Applicable) - Cachorro Macdonald, Ordered Studies 06/20/18 07:45 FL cervical 2-3V Routine FL fluoroscopy <1hr Routine Hospital Course (1) Cervical stenosis of spinal canal: Patient underwent anterior cervical discectomy and fusion tolerated as well as taken to orthopedic for postoperative. Postop day #1 his arm symptoms are improved no swallowing issues no hoarseness. Subsequent Total Time Total Time Spent Total Time Spent (In Minutes): Cervical spinal stenosis with radiculopathy Discharge Plan Discharge Items Patient Disposition: Home - Self-Care Reason For Visit: Spinal Stenosis, Cervical Region Discharge Diagnosis: Cervical spinal stenosis with radiculopathy Discharge Goals: Decrease discomfort Activity: Per 'Additional Instructions' section Non-emergency contact: Primary Care Provider Call non-emergency contact if: you have any medication questions Follow-up/Referrals: Yuniel Raymond [Primary Care Provider] - Diet: Regular Addtl Provider Instructions: ACTIVITY RECOMMENDATIONS: SELF CARE INSTRUCTIONS AFTER CERVICAL FUSIONS 1. No smoking. Smoking drastically decreases the chance of a solid fusion. 2. No bending, lifting more than 5 pounds, or twisting (roll like a log when turning in bed). 3. You may shower 3 days after surgery. Thoroughly dry wound. Do not soak in the tub. 4. Cervical collar: Must be worn at all times including sleeping. You may remove the brace only to bath, eat and if you are sitting in a recliner. 5. Please walk as much as you can for exercise. Gradually increase the distance that you walk as your endurance increases. SPECIAL CARE INSTRUCTIONS: VERY IMPORTANT TO READ AND REVIEW A. Do not take any anti-inflammatory medications (i.e. Indocin, Advil, Aspirin, Naprosyn, Aleve, Motrin, etc.) as these may inhibit the chance of a solid fusion. Tylenol is okay to take. B. Your surgical incision has been closed with a cosmetic suture under the skin that will dissolve in about 6 weeks. In 14 days, you can use a pair of clean scissors and cut the suture that is left outside of the skin at the ends of your incision. C. Complications are uncommon, but please contact us if you have any signs or symptoms of: 1. wound infection (fever higher than 102.5 degrees F, redness, separation of wound, drainage, or increasing pain from the incision) 2. blood clots in legs (pain, swelling, redness and warmth in legs) 3. urinary tract infection (fever higher than 102.5 degrees, burning upon urination or increased frequency of urination) 4. nerve problems (inability to walk on your toes or heels, numbness, loss of bowel or bladder control) 5. any other symptoms that concern you. D. Please call the office at if you have any concerns or questions about your operation or recovery. MANAGING PAIN AFTER SPINAL SURGERY 1. Narcotic medication is intended for short-term use and will be provided for surgical pain. Surgical pain usually lasts for a period of 4-6 weeks. Narcotic medication includes Percocet, Vicodin, Darvocet, Tylenol #3 or Lortab. 2. Longer-term pain is more appropriately treated with non-narcotic medication such as Tylenol ES. 3. Muscle spasm is not appropriately treated with narcotics. Muscle relaxers such as Soma, Flexeril or Skelaxin can be used along with Tylenol ES. 4. Remember that we all live with some "aches and pains". This is not unusual or uncommon after an injury or as we get older. 5. We will provide appropriate medication within the normal guidelines of their prescribed use. We will also be very cautious and aware of potential abuse and extended duration of patients' medication needs. 6. Please allow 2-3 days to process refills. Prescriptions will not be mailed but must be picked up at the office. FOLLOW UP VISIT: Keep your scheduled follow-up appointment. Any questions, please call the office at . Prescriptions: New oxycodone 5 mg Tablet 5 mg PO Q4H PRN (Reason: Pain) Qty: 30 RF: 0 Continued pindolol 10 mg Tablet 10 mg PO BID RF: 0 metformin 500 mg Tablet 1,000 mg PO QDL RF: 0 clonazepam 0.5 mg Tablet 0.5 mg PO HS RF: 0 clonazepam 1 mg Tablet 1 mg PO QAM RF: 0 pantoprazole 40 mg Tablet,Delayed Release (Dr/Ec) 40 mg PO QAM RF: 0 ezetimibe 10 mg Tablet 10 mg PO QAM RF: 0 oxycodone 10 mg Tablet 10 mg PO TID PRN (Reason: Pain) RF: 0 ropinirole [Requip XL] 2 mg Tablet Extended Release 24 Hr 1.5 tab PO HS RF: 0 ferrous sulfate [iron] 325 mg (65 mg iron) Tablet 325 mg PO QAM RF: 0 vitamin E 400 unit Capsule 400 unit PO QAM RF: 0 vitamin B complex Capsule 1 cap PO UD PRN (Reason: ULCERS IN MOUTH) RF: 0 cholecalciferol (vitamin D3) [Vitamin D3] 5,000 unit Tablet 5,000 unit PO DAILY RF: 0 albuterol sulfate 90 mcg/actuation Hfa Aerosol Inhaler 2 puff INHALATION Q6H PRN (Reason: SOB) RF: 0 Stand-Alone Forms: [facility] Discharge Orders: Discharge Order (Routine); Ordered 06/21/18 Ordered By: Cachorro Macdonald Admission Data Admit Date/Time: 06/20/18 09:34 Attending Provider: Cachorro Macdonald Admit Provider: Cachorro Macdonald Primary Care Provider: Yuniel Raymond Other Providers: Moreno Manzano Service: Surgical Services
[2018-06-21] MEDS ORDERED: clonazePAM 1 MG TAB PO SCH (09:00)
[2018-06-21] MEDS ORDERED: FERROUS SULFATE 325 MG TAB PO SCH (09:00)
[2018-06-21] MEDS ORDERED: EZETIMIBE 10 MG TABLET PO SCH (09:00)
[2018-06-21] MEDS ORDERED: PANTOprazole 40 MG TAB PO SCH (09:00)
[2018-06-21] MEDS: INSULIN ASPART 100 UNITS/ML 3 ML PEN SC SCH ×2 (09:29→12:03)
== END 2018-06-21 13:30 | disposition home or self-care (01) | DRG 473 ==
LOC: ASU 06:17 → 3E 09:34
DX: I10 Essential (primary) hypertension; E11.9 Type 2 diabetes mellitus without complications; Z88.0 Allergy status to penicillin; Z88.8 Allergy status to other drugs, medicaments and biological substances; Z91.041 Radiographic dye allergy status; M54.12 Radiculopathy, cervical region; F41.0 Panic disorder [episodic paroxysmal anxiety]; M48.02 Spinal stenosis, cervical region; I25.10 Atherosclerotic heart disease of native coronary artery without angina pectoris; E78.5 Hyperlipidemia, unspecified; Z91.013 Allergy to seafood; Z83.3 Family history of diabetes mellitus; K21.9 Gastro-esophageal reflux disease without esophagitis; Z79.84 Long term (current) use of oral hypoglycemic drugs; E61.1 Iron deficiency; R55 Syncope and collapse; G25.81 Restless legs syndrome; Z79.899 Other long term (current) drug therapy

== ENCOUNTER 2020-12-31 11:49 | Observation (INO) ==
[2020-12-31 12:30] LABS: Basophils # (auto) 0.02 K/uL (0-0.2); Basophils % (auto) 0.3 %; Eosinophils # (auto) 0.09 K/uL (0-0.5); Eosinophils % (auto) 1.3 %; Hematocrit (blood only) 43.7 % (42-52); Hemoglobin 14.9 g/dL (14.0-18.0); Immature Granulocytes # (auto) 0.01 K/uL (0.00-0.02); Immature Granulocytes % (auto) 0.1 %; Lymphocytes # (auto) 1.07 K/uL (1.2-3.4); Lymphocytes % (auto) 15.6 %; Mean Corpuscular Hemoglobin 30.8 pg (25-34); Mean Corpuscular Hgb Conc 34.1 g/dL (32-36); Mean Corpuscular Volume 90.5 fL (80-100); Mean Platelet Volume 10.5 fL (7.4-10.4); Monocytes # (auto) 0.55 K/uL (0.11-0.59); Neutrophils # (auto) 5.13 K/uL (1.4-6.5); Neutrophils % (auto) 74.7 %; Platelet Count 108 K/uL (130-400); RDW Coefficient of Variation 12.6 % (11.5-14.5); Red Blood Count 4.83 M/uL (4.7-6.1); White Blood Count 6.87 K/uL (4.8-10.8)
[2020-12-31 12:36] LABS: INR 1.1 (0.9-1.1); Partial Thromboplastin Time 25.4 Seconds (21.0-31.0); Prothrombin Time 10.9 Seconds (9.0-12.0)
--- NOTE | 2020-12-31 12:41 | XRay Report ---
XR chest 2V PA/lateral CLINICAL HISTORY: Atypical chest pain TECHNIQUE: AP and lateral frontal radiograph of the chest was obtained. Comparison: None available at the time of this dictation. FINDINGS: No lines and tubes are seen. The cardiomediastinal silhouette is normal. The lungs are clear. No evid ence of pleural effusion or pneumothorax. IMPRESSION: No acute chest disease. ACT 112: Negative or not required by law. Electronically signed by: Iain Rdz M.D. 12/31/2020 12:40 PM
[2020-12-31 13:04] LABS: Alanine Aminotransferase 40 U/L (12-78); Albumin Globulin Ratio 0.8 (0.9-2); Albumin Level 3.6 gm/dl (3.4-5.0); Alkaline Phosphatase 64 U/L (45-117); BUN Creatinine Ratio 12.7 (10-20); Bilirubin,Total 0.5 mg/dl (0.2-1); Blood Urea Nitrogen 16 mg/dl (7-18); Calcium 9.3 mg/dl (8.5-10.1); Carbon Dioxide 26 mmol/L (21-32); Chloride 106 mmol/L (98-107); Creatinine Clr Calc Pharmacy 68.7 ml/min; Est GFR (African American) 71.3 ml/min; Est GFR (Non-African American) 61.5 ml/min; Globulin 4.5 gm/dl (2.5-4.0); Glucose 177 mg/dl (70-99); Sodium 139 mmol/L (136-145); Total Protein 8.1 gm/dl (6.4-8.2); Troponin I < 0.015 ng/ml (0-0.045)
--- NOTE | 2020-12-31 13:58 | Emergency Department Note ---
Impression & Plan Chest pain, Dizziness, Thrombocytopenia ED Provider Note NAME: FARIDEH ALVAREZ AGE: 65 SEX: M : 1955 ARRIVES VIA: Walk-In INFORMANT: Patient, ED PROVIDER(S): Gianni Spencer DO CHIEF COMPLAINT: Weakness HPI: The patient is a 65-year-old male who presents emergency department with multiple complaints. The patient has a history of coronary artery disease. He went to see his primary fish drier today. He was seen in the office and was sent to the emergency department for further evaluation as well as possible CT of the chest to rule out thoracic aortic dissection or other coronary issues. The patient states he has no chest pain at this time. He states he has been experiencing chest discomfort and generalized weakness as well as dizziness over the last few weeks. He states has had no trauma. He said no fever. He denies having any cough. He does describe some shortness of breath and some with exertion. He denies having any lower extremity swelling or pain. The patient states he did have a cardiac catheterization in the past which showed coronary artery disease but no stenting was needed. ROS: See above HPI for pertinent positives & negatives. A total of 10 systems reviewed and were otherwise negative. PAST MEDICAL HISTORY: See Below PAST SURGICAL HISTORY: See Below FAMILY HISTORY: See Below SOCIAL HISTORY: See Below HOME MEDICATIONS: See Below ALLERGIES: See Below VITALS: See Below PHYSICAL EXAMINATION: GENERAL: The patient is awake and alert. The patient is somewhat anxious appearing but overall comfortable. EYES: The conjunctivae are clear. The pupils are round and reactive. EARS, NOSE, MOUTH AND THROAT: The nose is without any evidence of any deformity. NECK: The neck is nontender and supple. RESPIRATORY: Normal respiratory effort is noted there is no evidence of wheezing rhonchi or rales CARDIOVASCULAR: Regular rate and rhythm noted there no murmurs rubs or gallops normal S1 normal S2. GASTROINTESTINAL: The abdomen is soft. Abdomen is nontender. MUSCULOSKELETAL/EXTREMITIES: There is no evidence of gross deformity full range of motion is noted in the hips and shoulders. SKIN: There is no obvious evidence of any rash. There are no petechiae, pallor or cyanosis noted. Pulses are symmetric in both wrist. NEUROLOGIC: Patient is awake alert and oriented x3 strength is symmetric patellar reflexes are 2+ bilaterally MEDICAL DECISION MAKING: The patient is a 65-year-old male who presented to the emergency department for an evaluation of chest discomfort. The patient was seen at the primary cardiolo gist office and sent to the emergency department for further evaluation. They were concerned about acute coronary syndrome however they were also concerned because the patient has a history of aortic dissection and he had pain in his back as well. I discussed the patient's laboratory and radiographic studies with him. I also discussed the limitations of the emergency department work-up for chest pain for ACS. The patient has a very severe iodine contrast allergy. He has had cardiac arrest in the past. I discussed this with the radiologist and they recommended an MRI of the chest without contrast given the patient's history. This appears to be satisfactory in ruling out a dissection at this time. I discussed this case with the on-call [facility] hospitalist group. They have agreed to evaluate the patient in the emergency department for further management and disposition. Triage Nursing notes reviewed. Prior medical records reviewed Vital Signs: reviewed and remarkable for elevated blood pressure. Differential diagnosis: Cardiac ischemia, aortic dissection, pulmonary embolism, pneumothorax, pneumonia, pericarditis, myocarditis, esophageal rupture, GERD, cholecystitis, pancreatitis, musculoskeletal, as well as other pathologies. ER treatment provided: See below Diagnostics interpreted by me: ECG: EKG was obtained in the emergency department. My interpretation is normal sinus rhythm at 74 bpm. There is no ectopy. There is no acute ST segment abnormalities noted. This was compared to a tracing from April 262018. No changes were noted. Cardiac Monitoring: An order was placed for continuous cardiac monitoring. The monitor shows a rate of 97 bpm with sinus rhythm. Laboratory studies: As stated above and show below. Imaging studies: See below Consultation(s): I discussed this case with Juan Miguel Alexander who evaluated the patient in the office today. I discussed this case with Dr Castro I discussed this case with Danish who is on-call for the [facility] hospitalist group. He will evaluate the patient in the emergency department. Past Med/Surg History Medical History (Updated 12/31/20 @ 20:18 by Gianni Spencer DO) Acid reflux Asthma R/T SEASONAL ALLERGIES. HAS NOT USED INHALER IN THE LAST 2 MONTHS Chronic back pain Degenerative disc disease NECK Diabetes TYPE 2 NIDDM Dilatation of thoracic aorta 4.0 cm per 09/2017 imaging High cholesterol Statin intolerant Nonobstructive atherosclerosis of coronary artery By cath 2000 Osteoarthritis Panic attacks Restless leg syndrome Sleep apnea HX CPAP, NON-COMPLIANT, NO LONGER HAS AT HOME. Vasovagal syncope Cardio following Surgical History History of arthroscopy RIGHT KNEE History of cardiac cath 2000 @ [facility], nonobstructive CAD. History of carpal tunnel release BILATERAL History of colonoscopy History of endoscopy History of herniorrhaphy UMBILICAL History of lumbar discectomy X2 History of myringotomy LEFT MYRINGOTOMY WITH TUBE (MAY 2018) History of neck surgery C6-7 "DISC TAKEN OUT" History of tibial fracture "TIB FIB FX" - LEFT "COMPOUND FRACTURE" - X9 TOTAL SURGERIES (1994) History of tonsillectomy S/P arthroscopy of shoulder RIGHT Family History Mother Family history of diabetes mellitus Brother Family history of diabetes mellitus Sister Family history of diabetes mellitus Father Family history of diabetes mellitus Grandmother Family history of diabetes mellitus Grandfather Family history of diabetes mellitus Social History Smoking Status: Never smoker Second Hand Exposure: No; Hx Alcohol Use: No Hx Substance Use: No Preferred Language: Syriac Communication Ability: Effective Visual Impairment: No Limitations Electric Bath Attendant Required: No Beliefs That Will Affect Care: None marital status: Current Living Situation: Spouse and Other Current Living Situation Comment: SON Feels Safe at Home: Yes Assistive Devices: Brace/Splint/Immobilizer Allergies Allergies Allergy/AdvReac Type Severity Reaction Status Date / Time Iodinated Contrast Media Allergy Unknown CONTRAST Verified 12/31/20 11:18 DYE -SWELLING THROAT, FACE shellfish derived Allergy Unknown SWELLING Verified 12/31/20 11:18 THROAT FACE amoxicillin AdvReac Unknown UPSET Verified 12/31/20 11:18 STOMACH citalopram AdvReac Unknown MADE HIM Verified 12/31/20 11:18 FEEL SPACED OUT clavulanic acid AdvReac Unknown UPSET Verified 12/31/20 11:18 STOMACH fluoxetine AdvReac Unknown MADE HIM Verified 12/31/20 11:18 FEEL SPACED OUT sertraline AdvReac Unknown MADE HIM Verified 12/31/20 11:18 FEEL SPACED OUT Inioins-JEV-ElU Reductase AdvReac Unknown MUSCLE Verified 12/31/20 11:18 Inhibitor CRAMPS [Oiapcmx-Nfu-Jvg Reductase Inhibitor] venlafaxine AdvReac Unknown MADE HIM Verified 12/31/20 11:18 FEEL SPACED OUT Home Meds Home Medications Medication Instructions Recorded Confirmed ferrous sulfate 325 mg (65 mg 325 mg PO QAM 04/27/18 12/31/20 iron) tablet (iron) pantoprazole 40 mg tablet,delayed 40 mg PO QAM 04/27/18 12/31/20 release vitamin B complex 1 cap PO UD PRN 04/27/18 12/31/20 vitamin E 400 unit capsule 400 unit PO QAM 04/27/18 12/31/20 albuterol sulfate 90 mcg/actuation 2 puff INHALATION Q6H PRN 06/11/18 12/31/20 aerosol inhaler cholecalciferol (vitamin D3) 50 2,000 units PO DAILY tab 09/11/18 12/31/20 mcg (2,000 unit) tablet fluticasone propionate 50 2 sprays INTRANASAL DAILY PRN gm 09/23/19 12/31/20 mcg/actuation nasal spray,suspension metformin 500 mg tablet 500 mg PO BID tab 09/23/19 12/31/20 buspirone 15 mg tablet 15 mg PO BID 12/31/20 12/31/20 liraglutide 0.6 mg/0.1 mL (18 mg/3 0.6 mg SUBCUT DAILY 12/31/20 12/31/20 mL) subcutaneous pen injector (Victoza 2-Edwardo) losartan 25 mg tablet 25 mg PO DAILY 12/31/20 12/31/20 oxycodone 5 mg tablet 5 mg PO BID PRN 12/31/20 12/31/20 Previous Rx's Medication Instructions Recorded pindolol 10 mg tablet 10 mg PO BID #60 tab 07/30/19 ezetimibe 10 mg tablet 10 mg PO QAM #90 tab 08/11/20 Results & Data (ED) Vital Signs Vital Signs - 24 hr 12/31/20 11:52 12/31/20 13:49 12/31/20 13:50 Temperature 36.7 C Temperature Source Temporal Artery Scan Pulse Rate 90 Pulse Rate [Apical] 70 Pulse Rhythm [Apical] Regular Pulse Strength [Apical] Normal Respiratory Rate 16 13 Respiratory Effort / Characteristics Non-Labored Non-Labored Spontaneous Respiratory Depth Normal Normal Respiratory Pattern Regular Blood Pressure 145/85 H Blood Pressure [Right Arm] 150/88 H Blood Pressure Mean 105 Blood Pressure Mean [Right Arm] 108 Blood Pressure Position [Right Arm] Lying Pulse Oximetry 97 95 Oxygen Delivery Method Room Air Room Air Sepsis Recent Fever Within 48 Hours No Sepsis New/Unexplained Change in Mental Status No Sepsis Action Taken by Nursing No Action Required 12/31/20 15:00 12/31/20 17:00 12/31/20 17:15 Temperature Temperature Source Pulse Rate 91 H Pulse Rate [Apical] 73 89 Pulse Rhythm [Apical] Regular Regular Pulse Strength [Apical] Normal Normal Respiratory Rate 12 16 12 Respiratory Effort / Characteristics Non-Labored Spontaneous Non-Labored Spontaneous Respiratory Depth Normal Normal Respiratory Pattern Blood Pressure Blood Pressure [Right Arm] 175/114 H 153/118 H Blood Pressure Mean Blood Pressure Mean [Right Arm] 134 129 Blood Pressure Position [Right Arm] Lying Pulse Oximetry 95 95 96 Oxygen Delivery Method Room Air Room Air Sepsis Recent Fever Within 48 Hours Sepsis New/Unexplained Change in Mental Status Sepsis Action Taken by Nursing 12/31/20 17:30 12/31/20 18:40 12/31/20 18:45 Temperature Temperature Source Pulse Rate 86 84 Pulse Rate [Apical] Pulse Rhythm [Apical] Pulse Strength [Apical] Respiratory Rate 17 13 Respiratory Effort / Characteristics Respiratory Depth Respiratory Pattern Blood Pressure 157/101 H Blood Pressure [Right Arm] Blood Pressure Mean 119 Blood Pressure Mean [Right Arm] Blood Pressure Position [Right Arm] Pulse Oximetry 95 93 93 Oxygen Delivery Method Sepsis Recent Fever Within 48 Hours Sepsis New/Unexplained Change in Mental Status Sepsis Action Taken by Nursing 12/31/20 20:00 Temperature Temperature Source Pulse Rate Pulse Rate [Apical] 97 H Pulse Rhythm [Apical] Regular Pulse Strength [Apical] Respiratory Rate 16 Respiratory Effort / Characteristics Non-Labored Respiratory Depth Normal Respiratory Pattern Blood Pressure Blood Pressure [Right Arm] 158/113 H Blood Pressure Mean Blood Pressure Mean [Right Arm] 128 Blood Pressure Position [Right Arm] Pulse Oximetry 95 Oxygen Delivery Method Room Air Sepsis Recent Fever Within 48 Hours Sepsis New/Unexplained Change in Mental Status Sepsis Action Taken by Fpc Medications Current Medication List: was personally reviewed by me Laboratory Data Attestation: I reviewed the patient's lab results. Result diagrams: 12/31/20 12:14 12/31/20 13:53 Lab Results 12/31/20 12/31/20 12/31/20 Range/Units 12:14 12:14 12:14 WBC 6.87 (4.8-10.8) K/uL RBC 4.83 (4.7-6.1) M/uL Hgb 14.9 (14.0-18.0) g/dL Hct 43.7 (42-52) % MCV 90.5 (80-100) fL MCH 30.8 (25-34) pg MCHC 34.1 (32-36) g/dL RDW Std Deviation 42.0 (36.4-46.3) fL RDW Coeff of Paul 12.6 (11.5-14.5) % Plt Count 108 L (130-400) K/uL MPV 10.5 H (7.4-10.4) fL Immature Gran % (Auto) 0.1 % Neut % (Auto) 74.7 % Lymph % (Auto) 15.6 % Patrick % (Auto) 8.0 % Eos % (Auto) 1.3 % Baso % (Auto) 0.3 % Neut # (Auto) 5.13 (1.4-6.5) K/uL Lymph # (Auto) 1.07 L (1.2-3.4) K/uL Patrick # (Auto) 0.55 (0.11-0.59) K/uL Eos # (Auto) 0.09 (0-0.5) K/uL Baso # (Auto) 0.02 (0-0.2) K/uL Immature Gran # (Auto) 0.01 (0.00-0.02) K/uL PT 10.9 (9.0-12.0) Seconds INR 1.1 (0.9-1.1) APTT 25.4 (21.0-31.0) Seconds PTT Ratio 1.0 Sodium 139 (136-145) mmol/L Potassium (3.5-5.1) mmol/L Chloride 106 (98-107) mmol/L Carbon Dioxide 26 (21-32) mmol/L Anion Gap 7.0 (3-11) BUN 16 (7-18) mg/dl Creatinine 1.24 (0.6-1.4) mg/dl Est Cr Clr Drug Dosing 68.7 ml/min Est GFR ( Amer) 71.3 ml/min Est GFR (Non-Af Amer) 61.5 ml/min BUN/Creatinine Ratio 12.7 (10-20) Glucose 177 H (70-99) mg/dl Calcium 9.3 (8.5-10.1) mg/dl Total Bilirubin 0.5 (0.2-1) mg/dl AST (15-37) U/L ALT 40 (12-78) U/L Alkaline Phosphatase 64 (45-117) U/L Troponin I < 0.015 (0-0.045) ng/ml Total Protein 8.1 (6.4-8.2) gm/dl Albumin 3.6 (3.4-5.0) gm/dl Globulin 4.5 H (2.5-4.0) gm/dl Albumin/Globulin Ratio 0.8 L (0.9-2) COVID-19 Eval Order 12/31/20 12/31/20 Range/Units 13:53 14:14 WBC (4.8-10.8) K/uL RBC (4.7-6.1) M/uL Hgb (14.0-18.0) g/dL Hct (42-52) % MCV (80-100) fL MCH (25-34) pg MCHC (32-36) g/dL RDW Std Deviation (36.4-46.3) fL RDW Coeff of Paul (11.5-14.5) % Plt Count (130-400) K/uL MPV (7.4-10.4) fL Immature Gran % (Auto) % Neut % (Auto) % Lymph % (Auto) % Patrick % (Auto) % Eos % (Auto) % Baso % (Auto) % Neut # (Auto) (1.4-6.5) K/uL Lymph # (Auto) (1.2-3.4) K/uL Patrick # (Auto) (0.11-0.59) K/uL Eos # (Auto) (0-0.5) K/uL Baso # (Auto) (0-0.2) K/uL Immature Gran # (Auto) (0.00-0.02) K/uL PT (9.0-12.0) Seconds INR (0.9-1.1) APTT (21.0-31.0) Seconds PTT Ratio Sodium (136-145) mmol/L Potassium 4.1 (3.5-5.1) mmol/L Chloride (98-107) mmol/L Carbon Dioxide (21-32) mmol/L Anion Gap (3-11) BUN (7-18) mg/dl Creatinine (0.6-1.4) mg/dl Est Cr Clr Drug Dosing ml/min Est GFR ( Amer) ml/min Est GFR (Non-Af Amer) ml/min BUN/Creatinine Ratio (10-20) Glucose (70-99) mg/dl Calcium (8.5-10.1) mg/dl Total Bilirubin (0.2-1) mg/dl AST 18 (15-37) U/L ALT (12-78) U/L Alkaline Phosphatase (45-117) U/L Troponin I (0-0.045) ng/ml Total Protein (6.4-8.2) gm/dl Albumin (3.4-5.0) gm/dl Globulin (2.5-4.0) gm/dl Albumin/Globulin Ratio (0.9-2) COVID-19 Eval Order Covid19 [place] [facility] Administered Medications Discontinued Medications Aspirin (Aspirin Chew 324 Mg) 324 mg PO NOW STA Stop: 12/31/20 19:11 Last Admin: 12/31/20 19:57 Dose: 324 mg Documented by: [id number] Diphenhydramine HCl (Diphenhydramine 50 Mg/Ml Vial) 25 mg IV NOW STA Stop: 12/31/20 14:15 Last Admin: 12/31/20 14:28 Dose: 25 mg Documented by: [id number] Famotidine (Pepcid 20mg Iv Push) 20 mg in 5 mls @ 2.5 mls/min IV NOW STA Stop: 12/31/20 14:15 Last Admin: 12/31/20 14:28 Dose: 2.5 mls/min Documented by: [id number] Methylprednisolone (Methylprednisolone 125 Mg/2 Ml Vial) 125 mg IV NOW STA Stop: 12/31/20 14:15 Last Admin: 12/31/20 14:29 Dose: 125 mg Documented by: [id number] Imaging Data Radiologist's Impression: Chest X-Ray 12/31/20 11:55 XR chest 2V PA/lateral CLINICAL HISTORY: Atypical chest pain TECHNIQUE: AP and lateral frontal radiograph of the chest was obtained. Comparison: None available at the time of this dictation. FINDINGS: No lines and tubes are seen. The cardiomediastinal silhouette is normal. The lungs are clear. No evidence of pleural effusion or pneumothorax. IMPRESSION: No acute chest disease. ACT 112: Negative or not required by law. Electronically signed by: Iain Rdz M.D. 12/31/2020 12:[address] 12/31/20 14:18 CT head/brain wo con CLINICAL HISTORY: dizziness Technique: Contiguous axial CT images of the head were acquired from the base of the skull to the vertex without intravenous contrast administration. Images were viewed in brain, subdural and bone windows. Automated dose lowering techniques and/or adjustment according to patient size were utilized for this exam. Comparison: Comparison is made to CT maxillofacial 06/05/2007 Findings: The ventricles, basal cisterns, and cerebral sulci are normal. There is no acute intracranial hemorrhage or evidence of acute territorial infarction. Neither mass effect, shift of the midline structures, nor abnormal extra-axial fluid collections are shown. Imaged portions of the paranasal sinuses and mastoid air cells are clear. The orbits appear normal. There are no acute fractures of the calvaria or scalp swelling. Impression: No acute intracranial hemorrhage, no evidence of acute territorial infarction or other acute intracranial disease process. ACT 112: Negative or not required by law. Electronically signed by: Iain Rdz M.D. 12/31/2020 3:12 PM Chest MRA 12/31/20 14:22 MR ANGIOGRAM OF THE CHEST IV CONTRAST CLINICAL HISTORY: Thoracic aneurysm. COMPARISON STUDY: Chest CT dated 03/02/2007. TECHNIQUE: Unenhanced MRI angiogram of the chest is performed utilizing various T2-weighted sequences in the axial, sagittal, and coronal planes. IV contrast w as not administered for this examination. FINDINGS: There is ectasia of the ascending thoracic aorta which measures up to 3.8 cm in diameter. The thoracic aorta is otherwise normal in caliber, and the arch demonstrates standard 3-vessel anatomy. There is no evidence of dissection on this unenhanced examination. The heart is normal in size and without pericardial effusion. There is no mediastinal lymphadenopathy. The lung parenchyma is grossly unremarkable but not well evaluated by MRI. IMPRESSION: 1. There is mild ectasia of the ascending thoracic aorta which measures up to 3.8 cm. 2. The remainder of the thoracic aorta is normal in caliber. 3. There is no evidence of dissection on this unenhanced examination. Electronically signed by: Edenilson Olivarez M.D. 12/31/2020 6:59 PM Discharge Plan Visit Data Chief Complaint: Referred by Doctor Stated Complaint: DR KRYSTEN NELSON SENT TO DO CARDIAC EVAL ED Provider: Gianni Spencer Discharge Problem: Chest pain, Dizziness, Thrombocytopenia Patient Disposition: Being Evaluated by Hospitalist Forms Stand Alone Forms: My [facility] Prescriptions Prescriptions: No Action pindolol 10 mg tablet 10 mg PO BID Qty: 60 RF: 0 ezetimibe 10 mg tablet 10 mg PO QAM Qty: 90 RF: 3 Victoza 2-Edwardo 0.6 mg/0.1 mL (18 mg/3 mL) pen injector 0.6 mg subcut DAILY RF: 0 buspirone 15 mg tablet 15 mg PO BID RF: 0 losartan 25 mg tablet 25 mg PO DAILY RF: 0 cholecalciferol (vitamin D3) 2,000 unit tablet 2,000 units PO DAILY RF: 0 metformin 500 mg tablet 500 mg PO BID RF: 0 fluticasone propionate 50 mcg/actuation spray,suspension 2 sprays intranasal DAILY PRN (Reason: allergy symptoms) RF: 0 pantoprazole 40 mg Tablet,Delayed Release (Dr/Ec) 40 mg PO QAM RF: 0 ferrous sulfate [iron] 325 mg (65 mg iron) Tablet 325 mg PO QAM RF: 0 vitamin E 400 unit Capsule 400 unit PO QAM RF: 0 vitamin B complex Capsule 1 cap PO UD PRN (Reason: ULCERS IN MOUTH) RF: 0 albuterol sulfate 90 mcg/actuation Hfa Aerosol Inhaler 2 puff INHALATION Q6H PRN (Reason: SOB) RF: 0 oxycodone 5 mg Tablet 5 mg PO BID PRN (Reason: Pain) RF: 0 Referrals Referrals: Yuniel Raymond [Primary Care Provider] -
[2020-12-31] MEDS ORDERED: diphenhydrAMINE 50 MG/ML VIAL IV STA (14:14)
[2020-12-31] MEDS ORDERED: methylPREDNISolone 125 MG/2 ML VIAL IV STA (14:14)
[2020-12-31] MEDS ORDERED: FAMOTIDINE 20MG IV PUSH 20 MG/5 ML SYR IV STA (14:14)
[2020-12-31 14:22] LABS: Potassium 4.1 mmol/L (3.5-5.1)
--- NOTE | 2020-12-31 15:13 | CT Scan Report ---
CT head/brain wo con CLINICAL HISTORY: dizziness Technique: Contiguous axial CT images of the head were acquired from the base of the skull to the joya omi without intravenous contrast administration. Images were viewed in brain, subdural and [facility]. Automated dose lowering techniques and/or adjustment according to patient size were utilized for this exam. Comparison: Comparison is made to CT maxillofacial 06/05/2007 Findings: The ventricles, basal cisterns, and cerebral sulci are normal. There is no acute intracranial hemorrh age or evidence of acute territorial infarction. Neither mass effect, shift of the midline structures , nor abnormal extra-axial fluid collections are shown. Imaged portions of the paranasal sinuses and mastoid air cells are clear. The orbits appear normal. There are no acute fractures of the calvaria or scalp swelling. Impression: No acute intracranial hemorrhage, no evidence of acute territorial infarction or other acute intracra nial disease process. ACT 112: Negative or not required by law. Electronically signed by: Iain Rdz M.D. 12/31/2020 3:12 PM
--- NOTE | 2020-12-31 19:00 | Magnetic Resonance Report ---
MR ANGIOGRAM OF THE CHEST IV CONTRAST CLINICAL HISTORY: Thoracic aneurysm. COMPARISON STUDY: Chest CT dated 03/02/2007. TECHNIQUE: Unenhanced MRI angiogram of the chest is performed utilizing various T2-weighted sequences in the axial, sagittal, and coronal planes. IV contrast was not administered for this examination. FINDINGS: There is ectasia of the ascending thoracic aorta which measures up to 3.8 cm in diameter. T he thoracic aorta is otherwise normal in caliber, and the arch demonstrates standard 3-vessel anatomy . There is no evidence of dissection on this unenhanced examination. The heart is normal in size and without pericardial effusion. There is no mediastinal lymphadenopathy. The lung parenchyma is grossly unremarkable but not well evaluated by MRI. IMPRESSION: 1. There is mild ectasia of the ascending thoracic aorta which measures up to 3.8 cm. 2. The remainder of the thoracic aorta is normal in caliber. 3. There is no evidence of dissection on this unenhanced examination. Electronically signed by: Edenilson Olivarez M.D. 12/31/2020 6:59 PM
[2020-12-31] MEDS ORDERED: ASPIRIN CHEW 324 MG PO STA (19:10)
--- NOTE | 2020-12-31 20:11 | History & Physical Report ---
Date of Service December 31, 2020 Assessment & Plan (1) Chest pain: Plan: 1) Chest discomfort -Chronic symptoms- possibly anginal, secondary to cardiomyopathy/worsening CAD -Low suspicion for acute injury- normal CXR, EKG, hemodynamically stable -Serial troponins ordered -Last echo 02/2020- EF 55-60% -Cardiology consulted, follows with Dr. Velásquez as outpatient -Admitted to observation, expected d/c tomorrow after cardiology consulted -Continue aspirin -Nitroglycerin PRN 2) Thoracic aortic aneurysm -Originally 4.1 cm upon diagnosis in February 2016 -Chest MRA on admission- 3.8 cm ectasia of ascending AA -Head CT neg -No evidence of dissection, aneurysm stable 3) CAD -Last known cardiac catheterization in 2000 demonstrating non-obstructive CAD, no stents placed -Not on any home antiplatelet therapy 4) HLD -Intolerant of statins -Continue home ezetimibe 5) HTN -Holding home losartan, pindolol 6) Anxiety -Continue home buspar 7) Diabetes -Holding metformin and liraglutide -Glucose 177 on admission, home glucose typically 90s-140s (2) Thoracic aortic aneurysm (TAA): (3) CAD (coronary artery disease): (4) Hypercholesterolemia: (5) Hypertension: History of Present Illness Chief Complaint: Chest discomfort Primary Care Provider: Yuniel Raymond Pt is 65 yo M with PMH HTN, HLD, vasovagal syncope, non-obstructive CAD, ascending thoracic aortic aneurysm (4.1 cm in 02/2016, 3.8 cm 02/2020) admitted for lightheadedness and chest discomfort. Over past 3 weeks pt reports feeling midsternal chest discomfort with radiation to neck, lightheadedness, dizziness and fatigue. Symptoms have occurred daily but are non-constant. No associated triggers or precipitants, no exacerbating or alleviating factors. Denies nausea, vomiting, fever, chills, LOC, decreased PO intake, back pain, abdominal pain. Denies dyspnea but notes there is mildly increased difficulty with inspiration. Explicitly denies chest pain or palpitations. No recent travel or sick contacts. No recent increase in stress or anxiety. Pt seen by cardiology today for routine appointment and referred to ED for concern of enlarging thoracic aortic aneurysm. On evaluation by admitting provider, pt still endorsing similar symptoms without any significant change. Allergies Allergy/AdvReac Type Severity Reaction Status Date / Time Iodinated Contrast Media Allergy Unknown CONTRAST Verified 12/31/20 11:18 DYE -SWELLING THROAT, FACE shellfish derived Allergy Unknown SWELLING Verified 12/31/20 11:18 THROAT FACE amoxicillin AdvReac Unknown UPSET Verified 12/31/20 11:18 STOMACH citalopram AdvReac Unknown MADE HIM Verified 12/31/20 11:18 FEEL SPACED OUT clavulanic acid AdvReac Unknown UPSET Verified 12/31/20 11:18 STOMACH fluoxetine AdvReac Unknown MADE HIM Verified 12/31/20 11:18 FEEL SPACED OUT sertraline AdvReac Unknown MADE HIM Verified 12/31/20 11:18 FEEL SPACED OUT Jnqjgsk-JEK-OrS Reductase AdvReac Unknown MUSCLE Verified 12/31/20 11:18 Inhibitor CRAMPS [Sgmzwkh-Mcc-Fsf Reductase Inhibitor] venlafaxine AdvReac Unknown MADE HIM Verified 12/31/20 11:18 FEEL SPACED OUT Home Medications Medication Instructions Recorded Confirmed Type ferrous sulfate 325 mg (65 mg 325 mg PO QAM 04/27/18 12/31/20 History iron) tablet (iron) pantoprazole 40 mg tablet,delayed 40 mg PO QAM 04/27/18 12/31/20 History release vitamin B complex 1 cap PO UD PRN 04/27/18 12/31/20 History vitamin E 400 unit capsule 400 unit PO QAM 04/27/18 12/31/20 History albuterol sulfate 90 mcg/actuation 2 puff INHALATION Q6H PRN 06/11/18 12/31/20 History aerosol inhaler cholecalciferol (vitamin D3) 50 2,000 units PO DAILY tab 09/11/18 12/31/20 History mcg (2,000 unit) tablet fluticasone propionate 50 2 sprays INTRANASAL DAILY PRN gm 09/23/19 12/31/20 History mcg/actuation nasal spray,suspension metformin 500 mg tablet 500 mg PO BID tab 09/23/19 12/31/20 History ezetimibe 10 mg tablet 10 mg PO QAM #90 tab 08/11/20 12/31/20 Rx buspirone 15 mg tablet 15 mg PO BID 12/31/20 12/31/20 History liraglutide 0.6 mg/0.1 mL (18 mg/3 0.6 mg SUBCUT DAILY 12/31/20 12/31/20 History mL) subcutaneous pen injector (Victoza 2-Edwardo) losartan 25 mg tablet 25 mg PO DAILY 12/31/20 12/31/20 History oxycodone 5 mg tablet 5 mg PO BID PRN 12/31/20 12/31/20 History clonidine HCl 0.1 mg tablet 0.1 mg PO BID #60 tab 01/01/21 Rx Past Med/Surg History Medical History (Updated 01/01/21 @ 17:44 by Misha Castro MD) Acid reflux Asthma R/T SEASONAL ALLERGIES. HAS NOT USED INHALER IN THE LAST 2 MONTHS Chronic back pain Degenerative disc disease NECK Diabetes TYPE 2 NIDDM Dilatation of thoracic aorta 4.0 cm per 09/2017 imaging High cholesterol Statin intolerant Nonobstructive atherosclerosis of coronary artery By cath 2000 Osteoarthritis Panic attacks Restless leg syndrome Sleep apnea HX CPAP, NON-COMPLIANT, NO LONGER HAS AT HOME. Vasovagal syncope Cardio following Surgical History History of arthroscopy RIGHT KNEE History of cardiac cath 2000 @ [facility], nonobstructive CAD. History of carpal tunnel release BILATERAL History of colonoscopy History of endoscopy History of herniorrhaphy UMBILICAL History of lumbar discectomy X2 History of myringotomy LEFT MYRINGOTOMY WITH TUBE (MAY 2018) History of neck surgery C6-7 "DISC TAKEN OUT" History of tibial fracture "TIB FIB FX" - LEFT "COMPOUND FRACTURE" - X9 TOTAL SURGERIES (1994) History of tonsillectomy S/P arthroscopy of shoulder RIGHT Family History Mother Family history of diabetes mellitus Brother Family history of diabetes mellitus Sister Family history of diabetes mellitus Father Family history of diabetes mellitus Grandmother Family history of diabetes mellitus Grandfather Family history of diabetes mellitus Social History Smoking Status: Never smoker Second Hand Exposure: No; Hx Alcohol Use: Yes Hx Substance Use: No Preferred Language: Uzbek Communication Ability: Effective Visual Impairment: No Limitations Manager [employer] Center Required: No Beliefs That Will Affect Care: None marital status: Current Living Situation: Spouse Current Living Situation Comment: SON Feels Safe at Home: Yes Assistive Devices: None Review of Systems Review of Systems: Per HPI Physical Exam Physical Exam: General: well-appearing, laying in bed, no acute distress HEENT: moist mucous membranes, no lymphadenopathy, no JVD CV: RRR, normal S1 and S2, no murmurs noted, PMI non-displaced Resp: CTAB, no wheezes or crackles, unlabored respirations without accessory muscle use Abd: soft, nontender, nondistended Ext: no peripheral edema, distal pulses 2+, cap refill <2s Results & Data Results & Data ([facility]) Vital Signs (Past 12 Hours) Vital Signs Temp Pulse Pulse Resp BP BP Pulse Ox 12/31/20 18:45 84 13 157/101 H 93 12/31/20 18:40 93 12/31/20 17:30 86 17 95 12/31/20 17:15 91 H 12 96 12/31/20 17:00 89 16 153/118 H 95 12/31/20 15:00 73 12 175/114 H 95 12/31/20 13:49 70 13 150/88 H 95 12/31/20 11:52 36.7 C 90 16 145/85 H 97 Laboratory Results Laboratory Results WBC 6.87 K/uL (4.8-10.8) 12/31/20 12:14 RBC 4.83 M/uL (4.7-6.1) 12/31/20 12:14 Hgb 14.9 g/dL (14.0-18.0) 12/31/20 12:14 Hct 43.7 % (42-52) 12/31/20 12:14 MCV 90.5 fL (80-100) 12/31/20 12:14 MCH 30.8 pg (25-34) 12/31/20 12:14 MCHC 34.1 g/dL (32-36) 12/31/20 12:14 RDW Std Deviation 42.0 fL (36.4-46.3) 12/31/20 12:14 RDW Coeff of Paul 12.6 % (11.5-14.5) 12/31/20 12:14 Plt Count 108 K/uL (130-400) L 12/31/20 12:14 MPV 10.5 fL (7.4-10.4) H 12/31/20 12:14 Immature Gran % (Auto) 0.1 % 12/31/20 12:14 Neut % (Auto) 74.7 % 12/31/20 12:14 Lymph % (Auto) 15.6 % 12/31/20 12:14 Faulkner % (Auto) 8.0 % 12/31/20 12:14 Eos % (Auto) 1.3 % 12/31/20 12:14 Baso % (Auto) 0.3 % 12/31/20 12:14 Neut # (Auto) 5.13 K/uL (1.4-6.5) 12/31/20 12:14 Lymph # (Auto) 1.07 K/uL (1.2-3.4) L 12/31/20 12:14 Faulkner # (Auto) 0.55 K/uL (0.11-0.59) 12/31/20 12:14 Eos # (Auto) 0.09 K/uL (0-0.5) 12/31/20 12:14 Baso # (Auto) 0.02 K/uL (0-0.2) 12/31/20 12:14 Immature Gran # (Auto) 0.01 K/uL (0.00-0.02) 12/31/20 12:14 PT 10.9 Seconds (9.0-12.0) 12/31/20 12:14 INR 1.1 (0.9-1.1) 12/31/20 12:14 APTT 25.4 Seconds (21.0-31.0) 12/31/20 12:14 PTT Ratio 1.0 12/31/20 12:14 Sodium 139 mmol/L (136-145) 12/31/20 12:14 Potassium 4.1 mmol/L (3.5-5.1) 12/31/20 13:53 Chloride 106 mmol/L (98-107) 12/31/20 12:14 Carbon Dioxide 26 mmol/L (21-32) 12/31/20 12:14 Anion Gap 7.0 (3-11) 12/31/20 12:14 BUN 16 mg/dl (7-18) 12/31/20 12:14 Creatinine 1.24 mg/dl (0.6-1.4) 12/31/20 12:14 Est Cr Clr Drug Dosing 68.7 ml/min 12/31/20 12:14 Est GFR ( Amer) 71.3 ml/min 12/31/20 12:14 Est GFR (Non-Af Amer) 61.5 ml/min 12/31/20 12:14 BUN/Creatinine Ratio 12.7 (10-20) 12/31/20 12:14 Glucose 177 mg/dl (70-99) H 12/31/20 12:14 Calcium 9.3 mg/dl (8.5-10.1) 12/31/20 12:14 Total Bilirubin 0.5 mg/dl (0.2-1) 12/31/20 12:14 AST 18 U/L (15-37) 12/31/20 13:53 ALT 40 U/L (12-78) 12/31/20 12:14 Alkaline Phosphatase 64 U/L (45-117) 12/31/20 12:14 Troponin I < 0.015 ng/ml (0-0.045) 12/31/20 12:14 Total Protein 8.1 gm/dl (6.4-8.2) 12/31/20 12:14 Albumin 3.6 gm/dl (3.4-5.0) 12/31/20 12:14 Globulin 4.5 gm/dl (2.5-4.0) H 12/31/20 12:14 Albumin/Globulin Ratio 0.8 (0.9-2) L 12/31/20 12:14 COVID-19 Eval Order Covid19 [place] [facility] 12/31/20 14:14 SARS-CoV-2, RNA, NAAT NEGATIVE (NEGATIVE) 12/31/20 19:58 Impressions Chest X-Ray 12/31/20 11:55 XR chest 2V PA/lateral CLINICAL HISTORY: Atypical chest pain TECHNIQUE: AP and lateral frontal radiograph of the chest was obtained. Comparison: None available at the time of this dictation. FINDINGS: No lines and tubes are seen. The cardiomediastinal silhouette is normal. The lungs are clear. No evidence of pleural effusion or pneumothorax. IMPRESSION: No acute chest disease. ACT 112: Negative or not required by law. Electronically signed by: Iain Rdz M.D. 12/31/2020 12:[address] 12/31/20 14:18 CT head/brain wo con CLINICAL HISTORY: dizziness Technique: Contiguous axial CT images of the head were acquired from the base of the skull to the vertex without intravenous contrast administration. Images were viewed in brain, subdural and bone windows. Automated dose lowering techniques and/or adjustment according to patient size were utilized for this exam. Comparison: Comparison is made to CT maxillofacial 06/05/2007 Findings: The ventricles, basal cisterns, and cerebral sulci are normal. There is no acute intracranial hemorrhage or evidence of acute territorial infarction. Neither mass effect, shift of the midline structures, nor abnormal extra-axial fluid collections are shown. Imaged portions of the paranasal sinuses and mastoid air cells are clear. The orbits appear normal. There are no acute fractures of the calvaria or scalp swelling. Impression: No acute intracranial hemorrhage, no evidence of acute territorial infarction or other acute intracranial disease process. ACT 112: Negative or not required by law. Electronically signed by: Iain Rdz M.D. 12/31/2020 3:12 PM Chest MRA 12/31/20 14:22 MR ANGIOGRAM OF THE CHEST IV CONTRAST CLINICAL HISTORY: Thoracic aneurysm. COMPARISON STUDY: Chest CT dated 03/02/2007. TECHNIQUE: Unenhanced MRI angiogram of the chest is performed utilizing various T2-weighted sequences in the axial, sagittal, and coronal planes. IV contrast was not administered for this examination. FINDINGS: There is ectasia of the ascending thoracic aorta which measures up to 3.8 cm in diameter. The thoracic aorta is otherwise normal in caliber, and the arch demonstrates standard 3-vessel anatomy. There is no evidence of dissection on this unenhanced examination. The heart is normal in size and without pericardial effusion. There is no mediastinal lymphadenopathy. The lung parenchyma is grossly unremarkable but not well evaluated by MRI. IMPRESSION: 1. There is mild ectasia of the ascending thoracic aorta which measures up to 3.8 cm. 2. The remainder of the thoracic aorta is normal in caliber. 3. There is no evidence of dissection on this unenhanced examination. Electronically signed by: Edenilson Olivarez M.D. 12/31/2020 6:59 PM Supervising Physician Co-Signing Physician Notes Attending addendum: I have physically seen this patient, have supervised the medical residents activities, and agree with the H&P unless as otherwise noted. Assessment and Plan: Chest discomfort/hypertension/CAD The patient will be admitted to telemetry for serial cardiac enzymes, serial EKG's, cardiac rhythm monitoring and a 2-D echocardiogram with Dopplers. Initial troponin negative Add Lyme and anaplasmosis testing to assess for possible tickborne illness Chest MRA is requested by outpatient cardiology, with stable ascending aortic aneurysm at 3.8 cm Continue aspirin, clonidine, losartan Consult cardiology Diabetes mellitus- Hold Metformin and liraglutide. Placed on Accu-Cheks before meals and at bedtime with NovoLog coverage per scale Check hemoglobin A1c Hyperlipidemia- Continue Zetia Check a fasting lipid panel Remaining orders and notations as noted Resident Activity Tracking Resident Involvement: Resident Care Provided Care Provided: Adult Hospital Medicine (1) Chest pain Chest pain type: unspecified Qualified Code(s): R07.9 - Chest pain, unspecified
[2020-12-31] MEDS ORDERED: NITROGLYCERIN SL 0.4 MG/TAB TAB SL PRN (20:35)
[2020-12-31] MEDS ORDERED: hydrALAZINE 10 MG TAB PO STA (21:17)
[2020-12-31] MEDS ORDERED: FLUTICASONE PROPIONATE NA SPR 16 GM BTL PRN (22:38)
[2020-12-31] MEDS ORDERED: ALUMINUM/MAGNESIUM SUSP 30 ML UDC PO PRN (22:38)
[2020-12-31] MEDS ORDERED: POLYETHYLENE (MIRALAX) 17 GM PACK PO PRN (22:38)
[2020-12-31] MEDS ORDERED: ALBUTEROL HFA 8 GM INHALER INH PRN (22:38)
[2020-12-31] MEDS ORDERED: MAGNESIUM HYDROXIDE SUSP 30 ML UDC PO PRN (22:38)
[2020-12-31] MEDS ORDERED: ONDANSETRON INJ 2 MG/ML 2 ML VIAL IV PRN (22:38)
[2020-12-31] MEDS ORDERED: ZOLPIDEM TARTRATE 5 MG TAB PO PRN (22:38)
[2020-12-31] MEDS ORDERED: VITAMIN B COMPLEX TAB PO PRN (22:38)
[2020-12-31] MEDS ORDERED: oxyCODONE HCL IR 5 MG TAB (IMMEDIATE RELEASE) PO PRN (22:38)
[2020-12-31] MEDS ORDERED: ACETAMINOPHEN 325 MG TAB PO PRN (22:38)
[2021-01-01] MEDS: busPIRone 15 MG TAB PO SCH ×2 (00:08→07:47)
[2021-01-01 08:44] LABS: Lyme Ab IgG w/WB Rflx Negative (Negative); Lyme Ab IgM w/WB Rflx Negative (Negative)
[2021-01-01] MEDS ORDERED: FERROUS SULFATE 325 MG TAB PO SCH (09:00)
[2021-01-01] MEDS ORDERED: TOCOPHERYL, DL-ALPHA 400 UNITS 180 MG CAP PO SCH (09:00)
[2021-01-01] MEDS ORDERED: PANTOprazole 40 MG TAB PO SCH (09:00)
[2021-01-01] MEDS ORDERED: EZETIMIBE 10 MG TABLET PO SCH (09:00)
[2021-01-01] MEDS ORDERED: CHOLECALCIFEROL 1,000 UNITS 25 MCG TAB PO SCH (09:00)
[2021-01-01] MEDS ORDERED: cloNIDine HCL 0.1 MG TAB PO STA (11:33)
[2021-01-01] MEDS ORDERED: LOSARTAN POTASSIUM 25 MG TAB PO SCH (11:45)
[2021-01-01] MEDS ORDERED: CARBOHYDRATES FOR HYPOGLYCEMIA PO PRN (11:59)
[2021-01-01] MEDS ORDERED: DEXTROSE 50% 50 ML SYRINGE IV PRN (11:59)
[2021-01-01] MEDS ORDERED: GLUCAGON FOR INJ 1 MG VIAL SQ PRN (11:59)
[2021-01-01] MEDS ORDERED: GLUCOSE 40% GEL 15 GM TUBE PO PRN (11:59)
[2021-01-01] MEDS ORDERED: GLUCOSE 10 TABS/TUBE PO PRN (11:59)
[2021-01-01 12:55] VITALS: TEMP 98.2; O2SAT 97
[2021-01-01] MEDS ORDERED: INSULIN ASPART 100 UNITS/ML 3 ML PEN SC SCH (16:30)
[2021-01-01 17:14] VITALS: BP 150/87; PULSE 84
--- NOTE | 2021-01-01 17:33 | Cardiology Consultation ---
Date of Consultation January 01, 2021 Assessment & Plan (1) Labile hypertension: (2) Vasovagal syndrome: (3) Atypical chest pain: (4) Aortic ectasia: (5) Non-occlusive coronary artery disease requiring drug therapy: Patient with multiple somatic complaints, none of which are suggestive of angina or anginal equivalent. No evidence of aortic dissection on CT MR angiogram. No evidence of acute cardiac event on ECG/cardiac enzymes. Certainly, he has labile hypertension which is suboptimally controlled currently, as well as in recent weeks. Given his excellent response to clonidine, recommend replacing pindolol with clonidine 0.1 mg twice daily with an extra dose available for as needed use during the day if systolic blood pressure greater than 160 mmHg. Given his known coronary artery disease (previously nonocclusive), reasonable to check stress study at some point to assess potential ischemic burden. However, he is unable to walk on the treadmill and had an unpleasant experience during a previous dobutamine stress test. Also, given his aortic ectasia, and the nonurgent nature of the study, nuclear pharmacologic stress would seem to be the preferred modality. Please schedule patient for Lexiscan within the next several weeks, with subsequent follow-up visit to his primary elevator serviceman, Dr. Velásquez. History of Present Illness Reason for Consultation: Chest discomfort Requesting Physician: Tatiana Jacobs MD Attending Physician: Tatiana Jacobs MD History of Present Illness 65-year-old man with history of hypertension, recurrent vasovagal syncope (on pindolol), minor ascending thoracic aneurysm (serial dimensions 4.1 cm/4.0 cm/3.7 cm/3.8 cm over the past 4 years), and nonobstructive coronary artery disease (cath 2000) who was seen by Juan Miguel Alexander PA-C yesterday in the office with multiple nonspecific complaints including lightheadedness, near syncope, and just feeling poorly. He did note some chest and neck discomfort at night several weeks ago which radiated in a tingling fashion to both arms lasted for 10 or 15 minutes before resolving, this occurred after he got out of bed and walk to the bathroom. No further exertional symptoms since that time, but he has not been very active for the past several weeks, since he has felt poorly for about 3 weeks. Symptoms are not exertional and not associated with nausea, vomiting, diaphoresis, or palpitations. Mostly, he complains of "fuzzy headed". In the past, he often had relative hypotension and orthostatic symptoms with presyncope or syncope. In recent weeks, his blood pressure has been more elevated. Evaluation of blood sugars shows him to be in reasonable range. Evaluation since admission included a perfectly normal ECG, benign overnight telemetry, negative troponins, and an MR angiogram of the chest showing mild ectasia of the ascending aorta without evidence of dissection. During my evaluation, he was fairly hypertensive (215/118) and was anxious about this. Of note, he did not receive his morning pindolol due to a formulary deficit. Upon reevaluation later, after he had received clonidine his BP had moderated substantially (BP 150/87). He actually took a brief nap and noted noted that his "fuzzy headed" feeling had resolved. Allergies Allergy/AdvReac Type Severity Reaction Status Date / Time Iodinated Contrast Media Allergy Unknown CONTRAST Verified 12/31/20 11:18 DYE -SWELLING THROAT, FACE shellfish derived Allergy Unknown SWELLING Verified 12/31/20 11:18 THROAT FACE amoxicillin AdvReac Unknown UPSET Verified 12/31/20 11:18 STOMACH citalopram AdvReac Unknown MADE HIM Verified 12/31/20 11:18 FEEL SPACED OUT clavulanic acid AdvReac Unknown UPSET Verified 12/31/20 11:18 STOMACH fluoxetine AdvReac Unknown MADE HIM Verified 12/31/20 11:18 FEEL SPACED OUT sertraline AdvReac Unknown MADE HIM Verified 12/31/20 11:18 FEEL SPACED OUT Himtcux-AIF-XgD Reductase AdvReac Unknown MUSCLE Verified 12/31/20 11:18 Inhibitor CRAMPS [Gdtvucw-Jtn-Ens Reductase Inhibitor] venlafaxine AdvReac Unknown MADE HIM Verified 12/31/20 11:18 FEEL SPACED OUT Home Medications Medication Instructions Recorded Confirmed Type ferrous sulfate 325 mg (65 mg 325 mg PO QAM 04/27/18 12/31/20 History iron) tablet (iron) pantoprazole 40 mg tablet,delayed 40 mg PO QAM 04/27/18 12/31/20 History release vitamin B complex 1 cap PO UD PRN 04/27/18 12/31/20 History vitamin E 400 unit capsule 400 unit PO QAM 04/27/18 12/31/20 History albuterol sulfate 90 mcg/actuation 2 puff INHALATION Q6H PRN 06/11/18 12/31/20 History aerosol inhaler cholecalciferol (vitamin D3) 50 2,000 units PO DAILY tab 09/11/18 12/31/20 History mcg (2,000 unit) tablet fluticasone propionate 50 2 sprays INTRANASAL DAILY PRN gm 09/23/19 12/31/20 History mcg/actuation nasal spray,suspension metformin 500 mg tablet 500 mg PO BID tab 09/23/19 12/31/20 History ezetimibe 10 mg tablet 10 mg PO QAM #90 tab 08/11/20 12/31/20 Rx buspirone 15 mg tablet 15 mg PO BID 12/31/20 12/31/20 History liraglutide 0.6 mg/0.1 mL (18 mg/3 0.6 mg SUBCUT DAILY 12/31/20 12/31/20 History mL) subcutaneous pen injector (Victoza 2-Edwardo) losartan 25 mg tablet 25 mg PO DAILY 12/31/20 12/31/20 History oxycodone 5 mg tablet 5 mg PO BID PRN 12/31/20 12/31/20 History clonidine HCl 0.1 mg tablet 0.1 mg PO BID #60 tab 01/01/21 Rx Patient History Medical History (Updated 01/01/21 @ 17:44 by Misha Castro MD) Acid reflux Asthma R/T SEASONAL ALLERGIES. HAS NOT USED INHALER IN THE LAST 2 MONTHS Chronic back pain Degenerative disc disease NECK Diabetes TYPE 2 NIDDM Dilatation of thoracic aorta 4.0 cm per 09/2017 imaging High cholesterol Statin intolerant Nonobstructive atherosclerosis of coronary artery By cath 2000 Osteoarthritis Panic attacks Restless leg syndrome Sleep apnea HX CPAP, NON-COMPLIANT, NO LONGER HAS AT HOME. Vasovagal syncope Cardio following Surgical History History of arthroscopy RIGHT KNEE History of cardiac cath 2000 @ [facility], nonobstructive CAD. History of carpal tunnel release BILATERAL History of colonoscopy History of endoscopy History of herniorrhaphy UMBILICAL History of lumbar discectomy X2 History of myringotomy LEFT MYRINGOTOMY WITH TUBE (MAY 2018) History of neck surgery C6-7 "DISC TAKEN OUT" History of tibial fracture "TIB FIB FX" - LEFT "COMPOUND FRACTURE" - X9 TOTAL SURGERIES (1994) History of tonsillectomy S/P arthroscopy of shoulder RIGHT Family History Mother Family history of diabetes mellitus Brother Family history of diabetes mellitus Sister Family history of diabetes mellitus Father Family history of diabetes mellitus Grandmother Family history of diabetes mellitus Grandfather Family history of diabetes mellitus Social History Smoking Status: Never smoker Second Hand Exposure: No; Do You Dip or Chew Tobacco: No; Tobacco Cessation Education Requested by Patient: No Hx Alcohol Use: Yes Hx Substance Use: No Preferred Language: Irish Communication Ability: Effective Visual Impairment: No Limitations Trailer Steerer Required: No Beliefs That Will Affect Care: None marital status: Current Living Situation: Spouse Current Living Situation Comment: SON Other Information That Helps Us Care for You: No Feels Safe at Home: Yes Safety Concerns: Feels Safe At This Time Assistive Devices: None Physical Exam Physical Exam: Adult white male in no distress. Afebrile. BP as noted. Pulse in the 80s and regular. Skin: no ecchymoses or generalized lesions. HEENT: unremarkable. Neck: Jugular venous pulse not elevated, no carotid bruits. Lungs: clear. Cardiac: regular rhythm, normal S1 and S2, no murmur or gallop. Abdomen: benign. Extremities: no edema, pulses intact. Neurologic: normal affect, nonfocal. Results & Data ([facility]) Vital Signs (Past 12 Hours) Vital Signs Temp Pulse Resp BP Pulse Ox 01/01/21 12:54 98.2 F 84 20 150/87 H 97 01/01/21 10:46 79 15 180/114 H 96 01/01/21 07:36 98.1 F 90 19 138/96 94 Laboratory Results Normal troponins. Normal electrolytes, BUN 16, creatinine 1.24. Normal hemoglobin and white count, platelet count 108,000. Diagnostic Findings Normal ECG. Chest MR angiogram as noted. Normal chest x-ray. PG Care Time/CCT Total # of Minutes Spent Total Time Spent with Patient: Total time spent is greater than 50% in coordination of care (as documented) at patient's floor/unit and/or counseling patient: Coding Level of Care Code 11382 Inpt Consult Level 4 Diagnoses Atypical chest pain R07.89 Aortic ectasia I77.819 Non-occlusive coronary artery disease requiring drug therapy I25.10 Labile hypertension R09.89 Vasovagal syndrome R55
--- NOTE | 2021-01-01 17:45 | Discharge Summary ---
Date of Service January 01, 2021 Admission HPI Per Admitting Provider Pt is 65 yo M with PMH HTN, HLD, vasovagal syncope, non-obstructive CAD, ascending thoracic aortic aneurysm (4.1 cm in 02/2016, 3.8 cm 02/2020) admitted for lightheadedness and chest discomfort. Over past 3 weeks pt reports feeling midsternal chest discomfort with radiation to neck, lightheadedness, dizziness and fatigue. Symptoms have occurred daily but are non-constant. No associated triggers or precipitants, no exacerbating or alleviating factors. Denies nausea, vomiting, fever, chills, LOC, decreased PO intake, back pain, abdominal pain. Denies dyspnea but notes there is mildly increased difficulty with inspiration. Explicitly denies chest pain or palpitations. No recent travel or sick contacts. No recent increase in stress or anxiety. Pt seen by cardiology today for routine appointment and referred to ED for concern of enlarging thoracic aortic aneurysm. On evaluation by admitting provider, pt still endorsing similar symptoms without any significant change. Principal Diagnosis Chest Discomfort Discharge Exam General: well-appearing, laying in bed, no acute distress HEENT: moist mucous membranes, no lymphadenopathy, no JVD CV: RRR, normal S1 and S2. no murmurs noted, rubs, or gallops Resp: CTAB, no wheezes or crackles, unlabored respirations without accessory muscle use Abd: soft, nontender, nondistended Ext: no peripheral edema, distal pulses 2+ Discharge Data Allergies Allergy/AdvReac Type Severity Reaction Status Date / Time Iodinated Contrast Media Allergy Unknown CONTRAST Verified 12/31/20 11:18 DYE -SWELLING THROAT, FACE shellfish derived Allergy Unknown SWELLING Verified 12/31/20 11:18 THROAT FACE amoxicillin AdvReac Unknown UPSET Verified 12/31/20 11:18 STOMACH citalopram AdvReac Unknown MADE HIM Verified 12/31/20 11:18 FEEL SPACED OUT clavulanic acid AdvReac Unknown UPSET Verified 12/31/20 11:18 STOMACH fluoxetine AdvReac Unknown MADE HIM Verified 12/31/20 11:18 FEEL SPACED OUT sertraline AdvReac Unknown MADE HIM Verified 12/31/20 11:18 FEEL SPACED OUT Umuoqni-HCS-QkL Reductase AdvReac Unknown MUSCLE Verified 12/31/20 11:18 Inhibitor CRAMPS [Nmkzbqr-Lsg-Udq Reductase Inhibitor] venlafaxine AdvReac Unknown MADE HIM Verified 12/31/20 11:18 FEEL SPACED OUT Consultations 12/31/20 19:20 ED Decision to Admit Stat 12/31/20 22:38 Consult Cardiology Routine Ordered Studies 12/31/20 14:18 CT head/brain wo con Stat 12/31/20 14:22 MR angio chest wo con Stat Hospital Course (1) Chest pain: Mr. Peters is a 65 yo male with PMH HTN, HLD, vasovagal syncope, non- obstructive CAD, ascending thoracic aortic aneurysm (4.1 cm in 02/2016, 3.8 cm 02/2020) admitted for lightheadedness and chest discomfort. 1) Chest Discomfort - Presented with 3 weeks of intermittent chest discomfort and lightheadedness - Likely sec to CAD - Normal CXR and EKG - Trops neg - Echo (02/2020): EF 55-60%, no wall motion abnormalities, mild LVH, 3.8cm ascending thoracic aortic aneurysm - Chest MRA (12/31): 3.8cm ascending thoracic aortic aneurysm, stable - Cardiology consult: Nuclear stress test outpatient. Unable to do it in the hospital due to uncontrolled BP in 200 systolic - f/u cardiology 2) Thoracic aortic aneurysm - 4.1cm (02/2016), 3.8cm (02/2020) - Chest MRA: 3.8cm ectasia of ascending thoracic aorta, no evidence of dissection, stable 3) CAD - Diagnosed w/ cardiac catheterization in 2000 - non-obstructive, no stents placed 4) HLD - Intolerant of statins - Cont. ezetimibe 5) HTN - Cont. Losartan - Discontinue Pindolol - Start Clonidine 0.1mg PO BID 6) Anxiety - Cont. buspar 7) Diabetes - Cont. metformin and liraglutide DVT ppx: SCD Diet: Heart Healthy Code: Full Dispo: Home, self care (2) Thoracic aortic aneurysm (TAA): (3) CAD (coronary artery disease): (4) Hypercholesterolemia: (5) Hypertension: Total Time Total Time Spent Total Time Spent (In Minutes): 30 Discharge Plan Discharge Items Patient Disposition: Home - Self-Care Reason For Visit: CHEST DISCOMFORT Discharge Diagnosis: Chest Discomfort Activity: Resume your previous activity Non-emergency contact: Primary Care Provider and Medical Claims Specialist Call non-emergency contact if: you have any medication questions and your symptoms worsen Follow-up/Referrals: Yuniel Raymond [Primary Care Provider] - Diet: Heart Healthy Addtl Attending Provider Instructions: You were admitted to the hospital for chest discomfort, advised to come to the ER from your communications station manager to evaluate your ascending thoracic aneurysm. With an MR Angiogram, the aneurysm remains stable at 3.8cm as it was back in February. Going forward, we would like you to get a nuclear stress test which will be performed in the outpatient setting early next week to determine a possible etiology of your symptoms. You will then follow up with cardiology with Dr. Velásquez afterwards. There are also some medication changes noted below. A discharge summary will be sent to your primary care physician to ensure continuity of care. Please bring this discharge summary with you to your next office appointment so that your provider can review it at that time. Follow-up appointments: Make a follow-up appointment with your PCP and communications station manager within the next week. It is very important that you follow up with them shortly after discharge from the hospital. We have requested a follow-up appointment with your primary care physician within one week of discharge. Please call their office if you do not hear from them. Keep all your follow-up appointments as already scheduled. If you cannot make an appointment, notify your provider. Medications: Your medication list has been reviewed and reconciled upon discharge to ensure accuracy and continuity of care. An updated list of all your medications is included with your hospital discharge paperwork. Please review this list closely,and make note of any changes. We sent a new medication called clonidine to your pharmacy. Take clonidine 0.1mg one tablet 2x per each day 12 hours apart. You may take an additional 3rd dose each day IF NEEDED (BP Systolic (top number) >160) Continue taking losartan 25mg daily DISCONTINUE pindolol Take your medications as instructed; do not skip a dose of your medicines. Make sure all of your doctors know every medicine you are taking (including bskr-gpj-pyvwdio medicines, vitamins,and supplements). Call your primary care provider before taking any new medicines (including otzl-bie-swsiaqa medicines, vitamins, and supplements),because some of these may interact with your current medications, or may make your symptoms worse. Tell your primary care provider if you cannot afford your medications. CONTACT YOUR PRIMARY CARE PROVIDER if you experience any of the following: Difficulty following your treatment plan, or difficulty taking medications. CALL 911 OR GO TO THE EMERGENCY DEPARTMENT if you experience any of the following: Sudden, severe abdominal pain or nausea/vomiting Severe chest pain, or chest pain that radiates (moves)to your jaw or arm Sudden, severe shortness of breath or difficulty breathing Thank you for allowing us to participate in your care. Pending Studies at Discharge: No Stand-Alone Forms: My [facility], Smoking Cessation Medications and DC Order Prescriptions: New clonidine HCl 0.1 mg tablet 0.1 mg PO BID Qty: 60 RF: 0 Continued ezetimibe 10 mg tablet 10 mg PO QAM Qty: 90 RF: 3 Victoza 2-Edwardo 0.6 mg/0.1 mL (18 mg/3 mL) pen injector 0.6 mg subcut DAILY RF: 0 buspirone 15 mg tablet 15 mg PO BID RF: 0 losartan 25 mg tablet 25 mg PO DAILY RF: 0 cholecalciferol (vitamin D3) 2,000 unit tablet 2,000 units PO DAILY RF: 0 metformin 500 mg tablet 500 mg PO BID RF: 0 fluticasone propionate 50 mcg/actuation spray,suspension 2 sprays intranasal DAILY PRN (Reason: allergy symptoms) RF: 0 pantoprazole 40 mg Tablet,Delayed Release (Dr/Ec) 40 mg PO QAM RF: 0 ferrous sulfate [iron] 325 mg (65 mg iron) Tablet 325 mg PO QAM RF: 0 vitamin E 400 unit Capsule 400 unit PO QAM RF: 0 vitamin B complex Capsule 1 cap PO UD PRN (Reason: ULCERS IN MOUTH) RF: 0 albuterol sulfate 90 mcg/actuation Hfa Aerosol Inhaler 2 puff INHALATION Q6H PRN (Reason: SOB) RF: 0 oxycodone 5 mg Tablet 5 mg PO BID PRN (Reason: Pain) RF: 0 Discontinued pindolol 10 mg tablet 10 mg PO BID Qty: 60 RF: 0 Discharge Orders: Discharge Order (Routine); Ordered 01/01/21 Ordered By: Derrick Kirkland Admission Data Admit Date/Time: 12/31/20 21:22 Attending Provider: Tatiana Jacobs Admit Provider: Larissa Frias Primary Care Provider: Yuniel Raymond Other Providers: Galen Bal ; Gianni Velásquez Supervising Physician Co-Signing Physician Notes Resident Physician Supervision Note: I independently interviewed and examined the patient and verified the valdez history and physical, reviewed labs and image studies and agree with resident Dr. Kirkland findings and care plan. Resident Activity Tracking Resident Involvement: Resident Care Provided Care Provided: Adult [facility]
--- NOTE | 2021-01-01 18:07 | Electrocardiogram Report ---
Test Reason : Blood Pressure : / mmHG Vent. Rate : 074 BPM Atrial Rate : 074 BPM P-R Int : 168 ms QRS Dur : 094 ms QT Int : 388 ms P-R-T Axes : 026 -16 013 degrees QTc Int : 430 ms Normal sinus rhythm Normal ECG When compared with ECG of 26-APR-2018 15:07, No significant change was found Confirmed by Misha Castro ([id number]) on 01/01/2021 6:07:18 PM Referred By: Confirmed By:Misha Castro
--- NOTE | 2021-01-01 19:30 | Billing Data ---
Date of Service January 01, 2021 Coding Level of Care Code INT OBSERVATION CARE 70M LVL 3
== END 2021-01-01 17:50 | disposition home or self-care (01) ==
LOC: ED 11:49 → INTOOBSV 20:18 → EDINP 20:18 → SUATTDRO 21:22 → EDINP 23:00